=== PATIENT | female | born 1950 | race Caucasian/White ===

== ENCOUNTER → 2016-12-09 | Outpatient (CLI) | payer MEDICARE ==
--- NOTE | 2016-12-10 08:10 | MM ---
Reason for exam: additional evaluation requested from abnormal screening. Last mammogram was performed less than 1 month ago. History: Patient is postmenopausal. Cyst aspiration of the left breast, December 22, 2003. Took estrogen for 10 years. Took progesterone for 10 years. Physical Findings: Nurse did not find any significant physical abnormalities on exam. MG 3D Work Up W/Cad LT CC and MLO view(s) were taken of the left breast. Prior study comparison: November 29, 2016, bilateral MG 3d screening mammo w/cad. November 09, 2015, bilateral MG 3d diag mammo w/cad SUJATA. Minimally increased punctate calcifications upper outer quadrant left breast. 6 month follow up recommended. These results were verbally communicated with the patient and result sheet given to the patient on 12/09/16. ASSESSMENT: Probably benign, BI-RAD 3 RECOMMENDATION: Follow-up diagnostic mammogram of the left breast in 6 months. Manage patient on a clinical basis.
== END | disposition home or self-care (01) ==
LOC: RADMAMWWP 14:53
PROVIDERS: ATTEND Obstetrics & Gynecology
DX: R92.8 Other abnormal and inconclusive findings on diagnostic imaging of breast (principal)
CPT/HCPCS: 77051; G0206; G0279

== ENCOUNTER → 2017-03-28 | Outpatient (CLI) | payer MEDICARE ==
[2017-03-28 09:13] LABS: ALT 34 U/L (9-52); AST 25 U/L (14-36); Anion Gap 11 mmol/L; Blood Urea Nitrogen 15 mg/dL (7-17); Calcium 9.9 mg/dL (8.4-10.2); Carbon Dioxide 27 mmol/L (22-30); Chloride 105 mmol/L (98-107); Cholesterol 149 mg/dL (<200); Glucose 138 mg/dL (74-99); HDL Cholesterol 53 mg/dL (40-60); Non-African American GFR(MDRD) >60 (>60 ml/min/1.73 sqM); Potassium 4.6 mmol/L (3.5-5.1); Sodium 143 mmol/L (137-145); Triglycerides 188 mg/dL (<150)
[2017-03-28 09:16] LABS: CH 30.9; CHCM 34.7; HDW 3.09; HGB 12.7 gm/dL (11.4-16.0); MCH 31.5 pg (25.0-35.0); MCHC 35.3 g/dL (31.0-37.0); MCV 89.2 fL (80.0-100.0); RBC 4.04 m/uL (3.80-5.40); WBC 6.4 k/uL (3.8-10.6)
[2017-03-28 11:50] LABS: Hemoglobin A1C 6.1 % (4.2-6.1)
== END | disposition home or self-care (01) ==
LOC: LABWHC1 08:12
PROVIDERS: ATTEND Internal Medicine Interventional Cardiology
DX: E11.69 Type 2 diabetes mellitus with other specified complication (principal); E78.2 Mixed hyperlipidemia; E87.8 Other disorders of electrolyte and fluid balance, not elsewhere classified; R53.83 Other fatigue
CPT/HCPCS: 36415; 80048; 80061; 83036; 84450; 84460; 85027

== ENCOUNTER → 2017-05-20 | Outpatient (CLI) | payer MEDICARE ==
--- NOTE | 2017-05-20 10:37 | MM ---
Reason for exam: follow-up at short interval from prior study. Last mammogram was performed 5 months ago. History: Patient is postmenopausal. Cyst aspiration of the left breast, December 22, 2003. Took estrogen for 10 years. Took progesterone for 10 years. Physical Findings: Nurse did not find any significant physical abnormalities on exam. MG 3D Diag Mammo W/Cad LT CC and MLO view(s) were taken of the left breast. Prior study comparison: December 09, 2016, left breast MG 3d work up w/cad LT. November 29, 2016, bilateral MG 3d screening mammo w/cad. The breast tissue is heterogeneously dense. This may lower the sensitivity of mammography. No significant new findings when compared with previous films. These results were verbally communicated with the patient and result sheet given to the patient on 05/20/17. ASSESSMENT: Negative, BI-RAD 1 RECOMMENDATION: Return to routine screening mammogram schedule for both breasts. Back on schedule.
== END | disposition home or self-care (01) ==
LOC: RADMAMWWP 09:49
PROVIDERS: ATTEND Obstetrics & Gynecology
DX: R92.8 Other abnormal and inconclusive findings on diagnostic imaging of breast (principal)
CPT/HCPCS: G0206; G0279

== ENCOUNTER → 2017-05-30 | Outpatient (CLI) | payer MEDICARE ==
[2017-05-30 13:06] LABS: Blood Urea Nitrogen 12 mg/dL (7-17); Non-African American GFR(MDRD) >60 (>60 ml/min/1.73 sqM)
--- NOTE | 2017-05-30 14:54 | CT ---
EXAMINATION TYPE: CT abdomen pelvis w con DATE OF EXAM: 05/30/2017 COMPARISON: 11/13/2015 INDICATION: Patient complains of bilateral upper quadrant pain and diarrhea x3 weeks. DLP: 1041.8 mGycm, Automated exposure control for dose reduction was used. CONTRAST: 100 mL of Omnipaque 300. Study performed with Oral Contrast TECHNIQUE: Axial images were obtained from above the diaphragm to the pubic rami in the axial plane a t 5 mm thick sections. Reconstructed images are reviewed on the computer in the coronal plane. FINDINGS: Limited CT sections are obtained the lung bases. The lung bases are clear. CT ABDOMEN: Liver: There is moderate fatty infiltration liver. No discrete masses or cysts are evident. Spleen: Normal Pancreas: Normal Adrenal glands: The adrenal glands are normal. Gallbladder: Surgically absent Kidneys: No masses are evident. No hydronephrosis is present. No cysts are present. Delayed images were obtained through the kidneys, which remain unremarkable. Aorta: Vascular calcification is within the aorta. Inferior vena cava: Normal. CT PELVIS: Loops of bowel within the abdomen and pelvis are normal. Diverticular changes are within the sigm oid colon. No acute diverticulitis is evident. Appendix: Not visualized Urinary bladder: Normal. Genitourinary structures: Uterus is not identified. Adnexal regions are clear. Osseous structures: No suspicious lytic or sclerotic lesions. IMPRESSIONS: 1. Diverticulosis without acute diverticulitis. 2. Moderate fatty infiltration of the liver. 3. No suspicious abnormality to account for upper quadrant pain for 3 weeks
== END | disposition home or self-care (01) ==
LOC: RADCTMAIN 12:24
PROVIDERS: ATTEND Surgery
DX: K57.90 Diverticulosis of intestine, part unspecified, without perforation or abscess without bleeding (principal); K76.0 Fatty (change of) liver, not elsewhere classified
CPT/HCPCS: 82565; 84520; 74177; 36415; Q9967

== ENCOUNTER → 2018-01-28 | Outpatient (CLI) | payer MEDICARE ==
--- NOTE | 2018-01-29 08:59 | MM ---
Reason for exam: screening (asymptomatic). Last mammogram was performed 8 months ago. History: Patient is postmenopausal. Cyst aspiration of the left breast, December 22, 2003. Took estrogen for 10 years. Took progesterone for 10 years. Physical Findings: A clinical breast exam by your physician is recommended on an annual basis and results should be correlated with mammographic findings. MG 3D Screening Mammo W/Cad Bilateral CC and MLO view(s) were taken. Prior study comparison: May 20, 2017, left breast MG 3d diag mammo w/cad LT. December 09, 2016, left breast MG 3d work up w/cad LT. The breast tissue is extremely dense which could obscure a lesion on mammography. Stable benign calcifications. There is no discrete abnormality. No significant changes when compared with prior studies. ASSESSMENT: Benign, BI-RAD 2 RECOMMENDATION: Routine screening mammogram of both breasts in 1 year.
== END | disposition home or self-care (01) ==
LOC: RADMAMWWP 08:11
PROVIDERS: ATTEND Obstetrics & Gynecology
DX: Z12.31 Encounter for screening mammogram for malignant neoplasm of breast (principal)
CPT/HCPCS: 77063; 77067

== ENCOUNTER → 2018-03-10 | Outpatient (CLI) | payer MEDICARE ==
[2018-03-10 11:03] LABS: ALT 41 U/L (9-52); AST 29 U/L (14-36); Cholesterol 138 mg/dL (<200); HDL Cholesterol 49 mg/dL (40-60); LDL Cholesterol,Calculated 59 mg/dL (0-99); Triglycerides 150 mg/dL (<150)
== END | disposition home or self-care (01) ==
LOC: LABWHC1 09:18
PROVIDERS: ATTEND Internal Medicine Interventional Cardiology
DX: E78.2 Mixed hyperlipidemia (principal)
CPT/HCPCS: 36415; 80061; 84450; 84460

== ENCOUNTER → 2018-03-28 | Outpatient (CLI) | payer MEDICARE ==
[2018-03-28 09:01] LABS: Basophils % (A) 1 %; Eosinophils # (A) 0.2 k/uL (0-0.7); Eosinophils % (A) 2 %; HGB 12.6 gm/dL (11.4-16.0); Lymphocytes # (A) 1.8 k/uL (1.0-4.8); Lymphocytes % (A) 28 %; MCH 28.7 pg (25.0-35.0); MCHC 33.1 g/dL (31.0-37.0); MCV 86.7 fL (80.0-100.0); Mean Platelet Volume 7.3; Monocytes # (A) 0.3 k/uL (0-1.0); Monocytes % (A) 4 %; Neutrophils # (A) 4.2 k/uL (1.3-7.7); Neutrophils % (A) 64 %; Platelet Count 290 k/uL (150-450); RBC 4.38 m/uL (3.80-5.40); RDW 14.2 % (11.5-15.5); WBC 6.6 k/uL (3.8-10.6)
[2018-03-28 09:31] LABS: Anion Gap 15 mmol/L; Blood Urea Nitrogen 15 mg/dL (7-17); Calcium 9.7 mg/dL (8.4-10.2); Carbon Dioxide 23 mmol/L (22-30); Chloride 104 mmol/L (98-107); Glucose 148 mg/dL (74-99); Potassium 4.5 mmol/L (3.5-5.1); Sodium 142 mmol/L (137-145)
[2018-03-28 18:32] LABS: Hemoglobin A1C 6.3 % (4.0-6.0)
== END | disposition home or self-care (01) ==
LOC: LABWHC1 08:27
PROVIDERS: ATTEND Internal Medicine
DX: R53.83 Other fatigue (principal); E87.8 Other disorders of electrolyte and fluid balance, not elsewhere classified; E11.9 Type 2 diabetes mellitus without complications
CPT/HCPCS: 36415; 80048; 83036; 85025

== ENCOUNTER → 2018-05-05 | Outpatient (CLI) | payer MEDICARE ==
--- NOTE | 2018-05-05 15:49 | US ---
EXAMINATION TYPE: US pelvis complete transvag DATE OF EXAM: 05/05/2018 COMPARISON: NONE CLINICAL HISTORY: R10.2 PELVIC PAIN. Pelvic pain, LLQ pain for 2-3 weeks. 3 prior c-sections. Partial hysterectomy - uterus and right ovary TECHNIQUE: Transvaginal (TV) and Transabdominal (TA) . Transabdominal sonographic images of the pel vis were acquired. Transvaginal sonographic images were medically necessary to better assess the fol lowing anatomy: left ovary Date of LMP: unknown EXAM MEASUREMENTS: Uterus: Surgically absent cm Endometrial Stripe: Surgically absent Right Ovary: Surgically absent Left Ovary: unable to visualize 1. Uterus: Surgically absent 2. Endometrium: Surgically absent 3. Right Ovary: Surgically absent 4. Left Ovary: Obscured by overlying bowel gas 5. Bilateral Adnexa: wnl IMPRESSION: No significant abnormality evident within the limitations of the exam
== END | disposition home or self-care (01) ==
LOC: RADUSWWP 14:48
PROVIDERS: ATTEND Obstetrics & Gynecology
DX: R10.2 Pelvic and perineal pain (principal)
CPT/HCPCS: 76830; 76856

== ENCOUNTER → 2018-09-15 | Outpatient (CLI) | payer MEDICARE ==
[2018-09-15 10:46] LABS: ALT 29 U/L (9-52); AST 20 U/L (14-36); Alkaline Phosphatase 71 U/L (38-126); Anion Gap 11 mmol/L; Blood Urea Nitrogen 11 mg/dL (7-17); Calcium 9.5 mg/dL (8.4-10.2); Carbon Dioxide 26 mmol/L (22-30); Chloride 105 mmol/L (98-107); Cholesterol 165 mg/dL (<200); HDL Cholesterol 49 mg/dL (40-60); LDL Cholesterol,Calculated 75 mg/dL (0-99); Potassium 5.1 mmol/L (3.5-5.1); Sodium 142 mmol/L (137-145); Total Bilirubin 0.5 mg/dL (0.2-1.3); Total Protein 6.6 g/dL (6.3-8.2); Triglycerides 204 mg/dL (<150)
[2018-09-15 11:07] LABS: Glucose 146 mg/dL (74-99)
== END ==
LOC: LABWHC1 09:17
PROVIDERS: ATTEND Internal Medicine Interventional Cardiology
DX: E78.2 Mixed hyperlipidemia (principal)
CPT/HCPCS: 36415; 80053; 80061

== ENCOUNTER → 2019-01-22 | Outpatient (CLI) | payer MEDICARE ==
[2019-01-22 17:57] LABS: Albumin 4.6 g/dL (3.80-4.90); Albumin/Globulin Ratio 2.42 (1.60-3.17); Anion Gap 11.5 mmol/L (4.00-12.00); Carbon Dioxide 26.5 mmol/L (21.6-31.8); Globulin 1.9 g/dL (1.6-3.3); LDL Cholesterol,Calculated 59.6 mg/dL (0.0-131.0); Potassium 4.9 mmol/L (3.5-5.5); Total Bilirubin 0.5 mg/dL (0.2-1.2); Total Protein 6.5 g/dL (6.2-8.2); VLDL Calculation 43.4 mg/dL (5.00-40.00)
== END | disposition home or self-care (01) ==
LOC: LABWHC1 09:17
PROVIDERS: ATTEND Internal Medicine Interventional Cardiology
DX: E78.2 Mixed hyperlipidemia (principal)
CPT/HCPCS: 36415; 80053; 80061

== ENCOUNTER → 2019-04-09 | Outpatient (CLI) | payer MEDICARE ==
--- NOTE | 2019-04-09 13:17 | BD ---
EXAMINATION TYPE: Axial Bone Density DATE OF EXAM: 04/09/2019 COMPARISON: NONE CLINICAL HISTORY: Height: 4 FT11 1/2 IN Weight: 176 FRAX RISK QUESTIONS: Family History (Parent hip fracture): YES Secondary Osteoporosis: 3. Menopause before 45: YES RISK FACTORS HISTORY OF: Family History of Osteoporosis: YES Active: YES Postmenopausal woman: AGE 40 Lost more than 2 inches in height since high school: YES MEDICATIONS: Osteoporosis Medications: YES Which medication: ACTONEL How Long: ONE YEAR Additional Medications: ACTONEL, METFORMIN,JENUVIA, BABY ASPIRIN,ATTENOLOL, SIMVASTATIN Additional History: EXAM MEASUREMENTS: Bone mineral densitometry was performed using the KSE System. Bone mineral density as measured about the Lumbar spine is: ----- L1-L4(G/cm2): 1.215 T Score Values are as follows: ----- L2: -0.7 ----- L3: 2.0 ----- L4: 1.1 ----- L1-L4: 0.3 Bone mineral density has: INCREASED 7.1 % since study of: 2015 Bone mineral density about the R hip (g/cm2): 0.679 Bone mineral density about the L hip (g/cm2): 0.716 T Score values are as follows: -----R Neck: -2.6 -----L Neck: -2.3 -----R Total: -1.5 -----L Total: -1.3 Bone mineral density has: DECREASED -1.1 % since study of:2016 IMPRESSION: Osteopenia bilateral femora. NOTE: T-SCORE=SD OF THE YOUNG ADULT MEAN.
--- NOTE | 2019-04-13 07:43 | MM ---
Reason for exam: screening (asymptomatic). Last mammogram was performed 1 year and 2 months ago. History: Patient is postmenopausal. Cyst aspiration of the left breast, December 22, 2003. Took estrogen for 10 years. Took progesterone for 10 years. Physical Findings: A clinical breast exam by your physician is recommended on an annual basis and results should be correlated with mammographic findings. MG 3D Screening Mammo W/Cad Bilateral CC and MLO view(s) were taken. Prior study comparison: January 28, 2018, bilateral MG 3d screening mammo w/cad. May 20, 2017, left breast MG 3d diag mammo w/cad LT. The breast tissue is heterogeneously dense. This may lower the sensitivity of mammography. Stable benign oil cyst and secretory calcifications. Stable bilateral global asymmetries and medial asymmetric density right CC view. ASSESSMENT: Benign, BI-RAD 2 RECOMMENDATION: Routine screening mammogram of both breasts in 1 year.
== END | disposition home or self-care (01) ==
LOC: RADMAMWWP 11:57
PROVIDERS: ATTEND Obstetrics & Gynecology
DX: Z12.31 Encounter for screening mammogram for malignant neoplasm of breast (principal); M85.88 Other specified disorders of bone density and structure, other site; K52.9 Noninfective gastroenteritis and colitis, unspecified
CPT/HCPCS: 77063; 77067; 77080

== ENCOUNTER → 2019-04-09 | Outpatient (CLI) | payer MEDICARE ==
[2019-04-09 20:39] LABS: Gliadin AB IgA, Unit <0.2 U/mL
== END ==
LOC: LABWHC1 13:11
PROVIDERS: ATTEND Internal Medicine Gastroenterology
DX: K52.9 Noninfective gastroenteritis and colitis, unspecified (principal)
CPT/HCPCS: 36415; 83516; 85652; 86140

== ENCOUNTER → 2019-08-12 | Outpatient (CLI) | payer MEDICARE ==
[2019-08-12 16:39] LABS: Chol/HDL Ratio 3.3; LDL Cholesterol,Calculated 68.4 mg/dL (0.0-131.0); VLDL Calculation 39.6 mg/dL (5.00-40.00)
== END | disposition home or self-care (01) ==
LOC: LABWHC1 09:21
PROVIDERS: ATTEND Nurse Practitioner Adult Health
DX: E78.2 Mixed hyperlipidemia (principal)
CPT/HCPCS: 36415; 80061; 84450; 84460

== ENCOUNTER → 2019-08-27 | Outpatient (CLI) | payer MEDICARE ==
--- NOTE | 2019-08-27 12:00 | XR ---
EXAMINATION TYPE: XR Hip Complete RT DATE OF EXAM: 08/27/2019 COMPARISON: None HISTORY: Right hip pain TECHNIQUE: 2 view right hip FINDINGS: Femoral head articulates with the acetabulum. Joint space appears preserved. No acute fract ure or dislocation is evident. IMPRESSION: 1. Normal 2 view right hip
== END ==
LOC: RADXRMAIN 10:31
PROVIDERS: ATTEND Family Medicine
DX: M25.551 Pain in right hip (principal)
CPT/HCPCS: 73502

== ENCOUNTER 2019-09-03 06:17 | Day surgery (SDC) | payer MEDICARE ==
[2019-09-01 09:19] VITALS: BMI 33.2
[~2019-09-03 06:17] MED LIST: ALPRAZolam 0.25 MG TAB PO PRN; ALPRAZolam 0.5 MG TAB PO PRN; NITROGLYCERIN SL TABS 0.4 MG TAB SUBLINGUAL PRN; SODIUM CHLORIDE 0.9% 1,000 ML in EMPTY BAG 1 BAG IV ONE
[2019-09-03] MEDS ORDERED: ASPIRIN 81 MG ONE (06:59)
[2019-09-03] MEDS ORDERED: ASPIRIN 325 MG TAB PO ONE (07:00)
[2019-09-03] MEDS ORDERED: ATORVASTATIN 80 MG TAB PO ONE (07:00)
[2019-09-03 07:04] LABS: Glucose,Whole Blood 196 mg/dL (75-99)
[2019-09-03 07:12] LABS: Basophils % (A) 1 %; Eosinophils # (A) 0.1 k/uL (0-0.7); Eosinophils % (A) 2 %; HCT 34.4 % (34.0-46.0); HGB 11.8 gm/dL (11.4-16.0); Lymphocytes # (A) 1.6 k/uL (1.0-4.8); Lymphocytes % (A) 23 %; MCH 29.6 pg (25.0-35.0); MCHC 34.4 g/dL (31.0-37.0); MCV 86.1 fL (80.0-100.0); Mean Platelet Volume 6.1; Monocytes # (A) 0.3 k/uL (0-1.0); Monocytes % (A) 4 %; Neutrophils # (A) 4.9 k/uL (1.3-7.7); Neutrophils % (A) 70 %; Platelet Count 286 k/uL (150-450); RDW 14.5 % (11.5-15.5); WBC 7.1 k/uL (3.8-10.6)
[2019-09-03] MEDS ORDERED: VERAPAMIL 2.5 MG/ML 2 ML AMP ONE (07:19)
[2019-09-03] MEDS ORDERED: LIDOCAINE 1% INJ 10MG/ML (20 ML MDV) ONE (07:20)
[2019-09-03 07:30] LABS: African American GFR (CKD) >90 (>60 ml/min/1.73 sqM); Anion Gap 11 mmol/L; Blood Urea Nitrogen 14 mg/dL (7-17); Calcium 9.7 mg/dL (8.4-10.2); Carbon Dioxide 24 mmol/L (22-30); Chloride 105 mmol/L (98-107); Glucose 199 mg/dL (74-99); Non-African American GFR(CKD) 84 (>60 ml/min/1.73 sqM); Potassium 4.4 mmol/L (3.5-5.1); Sodium 140 mmol/L (137-145)
[2019-09-03] MEDS ORDERED: fentaNYL (PF) 50 MCG/ML 2 ML AMP ONE (07:32)
[2019-09-03] MEDS ORDERED: HEPARIN SODIUM 1,000 UN/ML (10ML VL) ONE (07:32)
[2019-09-03] MEDS ORDERED: IV FLUID CONTINUATION 800 ML IV ONE (07:41)
[2019-09-03] MEDS ORDERED: fentaNYL (PF) 50 MCG/ML 2 ML AMP IV ONE (07:41)
[2019-09-03] MEDS ORDERED: LIDOCAINE 1% INJ 10MG/ML (20 ML MDV) SQ ONE (07:49)
[2019-09-03] MEDS ORDERED: VERAPAMIL SYRINGE (5 MG/10 ML) INTRAARTER ONE (07:51)
[2019-09-03] MEDS ORDERED: CLOPIDOGREL 75 MG TAB ONE (08:04)
[2019-09-03] MEDS ORDERED: BIVALIRUDIN BOLUS 250 MG/50 ML IV ONE (08:05)
[2019-09-03] MEDS ORDERED: BIVALIRUDIN 250 MG in SODIUM CHLORIDE 0.9% 50 ML IV ONE (08:06)
[2019-09-03] MEDS ORDERED: CLOPIDOGREL 75 MG TAB PO ONE (08:07)
[2019-09-03] MEDS ORDERED: NITROGLYCERIN 1000MCG/10ML SYRINGE INTRACORON ONE (08:16)
[2019-09-03] MEDS ORDERED: IOPAMIDOL-370 125ML BTL INJ ONE ×2 (08:19→08:31)
[2019-09-03] MEDS ORDERED: ATROPINE SULFATE 0.1 MG/ML 10ML SYRINGE IV PRN (08:54)
[2019-09-03] MEDS ORDERED: MAG HYDROX/AL HYDROX/SIMETH 30 ML CUP PO PRN (08:54)
[2019-09-03] MEDS ORDERED: NITROGLYCERIN SL TABS 0.4 MG TAB SUBLINGUAL PRN (08:54)
[2019-09-03] MEDS ORDERED: ZOLPIDEM 5 MG TAB PO PRN (08:54)
[2019-09-03] MEDS ORDERED: RX INFO: IV CONTRAST WAS GIVEN 1 EACH MISC MISCELLANE PRN (08:54)
[2019-09-03] MEDS ORDERED: DICYCLOMINE 10 MG CAP PO PRN (08:55)
[2019-09-03] MEDS ORDERED: ALPRAZolam 0.25 MG TAB PO PRN (08:55)
[2019-09-03] MEDS ORDERED: SODIUM CHLORIDE 0.9% 1,000 ML IV SCH (09:00)
[2019-09-03] MEDS ORDERED: CHOLECALCIFEROL 1,000 UNIT TAB PO SCH (09:00)
[2019-09-03] MEDS ORDERED: ATENOLOL 50 MG TAB PO SCH (09:00)
--- NOTE | 2019-09-03 09:05 | CC ---
CARDIAC CATHETERIZATION REPORT Mrs. Rausch is a 69-year-old female with known history of coronary artery disease, status post stenting of 1996, history of hypertension, hyperlipidemia, diabetes mellitus, who presented with symptoms of exertional chest discomfort reminding her of the way she felt prior to her percutaneous revascularization. In view of that, recommendation was made regarding cardiac catheterization. The procedure as well as the risks and the complications were discussed with the patient who is in full understanding and agreement. 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 Using Xylocaine anesthesia in the Seldinger technique, a 6-Bangladeshi sheath was introduced in the right radial artery. Selective right and left coronary angiography performed using 5-Bangladeshi 3.5 bend right and left Jareth catheters. Multiple views of the coronary artery including hemiaxial views were obtained. Following that, angioplasty and stenting was performed. Following that 5-Bangladeshi tight pigtail catheter was introduced in the left ventricle and a 30-degree TALBOT view of the left ventricle was obtained. Following that, catheter and sheath were removed. Hemostasis was obtained with deployment of TR band. There was no immediate complication. Patient is returned to her room in stable condition. Of note, the patient received intra-arterial verapamil. FINDINGS: FLUOROSCOPY: There was significant calcification involving the left anterior descending artery and the right coronary artery. LEFT MAIN: This is a large-sized vessel bifurcating in left circumflex, left anterior descending artery. Left main coronary artery has no evidence of high-grade stenosis. LEFT ANTERIOR DESCENDING ARTERY: This is a large-sized vessel reaching to the apex giving rise to a moderately sized diagonal branch in the mid segment. The left anterior descending artery at the site of the diagonal branch takeoff has a 40% plaque involving the diagonal branch in a calcified segment. The rest of the vessel has no high-grade stenosis. LEFT CIRCUMFLEX: This is a nondominant vessel, large in caliber giving rise to 3 obtuse marginal branches. The third one is the largest in caliber. The left circumflex approximately has a 20% plaque. The rest of the vessel has no high-grade stenosis. RIGHT CORONARY ARTERY: This is a dominant vessel large in caliber bifurcating distally PDA and posterolateral segment and branches. The mid segment of the right coronary artery at the site of the prior stenting of 1996 in the middle of the stent, there is a 90% stenosis. Distally, the vessel has intimal disease with area of stenosis up to 40%. There is another plaque of 50% to 60% involving the PDA. LEFT VENTRICULOGRAM: Left ventriculogram is performed 30-degree TALBOT view and revealed an inferobasal hypokinesis. Ejection fraction 45% to 50%. There was no significant mitral regurgitation. HEMODYNAMICS: There was no gradient across the aortic valve. The left ventricular end-diastolic pressure donahue 16 to 20 mmHg. CONCLUSION: 1. Significant stenosis in the mid right coronary artery. 2. Mild disease in the left anterior descending artery and the left circumflex. 3. Calcified coronary arteries. 4. Mildly impaired left ventricular systolic function. RECOMMENDATION: In view of finding anatomy, I recommend proceeding with angioplasty and stenting of the right coronary artery. The procedure as well as the risks and the complications were discussed with the patient who is in full understanding and agreement. MMQAMARL / IJN: [id number] /
--- NOTE | 2019-09-03 09:19 | PTCA ---
PERCUTANEOUSTRANS CORORONARY ANGIOGRAPHY Mrs. Rausch is a 69-year-old female with known history of hypertension, hyperlipidemia, diabetes mellitus, and history of coronary artery disease who presented with new onset angina pectoris, underwent cardiac catheterization, was found to have critical stenosis involving the mid right coronary artery. In view of that, recommendation was made regarding angioplasty and stenting. The procedure as well as the risks and the complications were discussed with the patient who was in full understanding and agreement. PROCEDURE: A 6-[place] FR4 guiding catheter introduced in the system. After cannulating the ostium of the right coronary artery, a 0.014 balanced medium weight J-wire was advanced across the lesion, positioned distally. Subsequently a 2.75 x 12 mm Trek balloon was advanced and 2 inflations maximum of 10 atmospheres were done. Following that, the balloon was removed and a 3.5 x 23 mm Xience Veronique stent was advanced, deployed and post dilated at 16 atmospheres. Following that, the balloon was removed and subsequently, a 3.75 x 15 mm NC Trek balloon was advanced and multiple inflations maximum of 16 atmospheres was done after the last inflation, after appropriate wait the balloon and the guidewire were withdrawn back in the guiding catheter. Images were obtained repeated those images reveal stable successful stenting. At that point, the guiding catheter, the balloon and the guidewire were removed and a left ventriculogram was performed. Following that, catheter and sheaths were removed. Hemostasis was obtained with deployment of a TR band. There was no immediate complication patient is returned to room in stable condition. Of note, the patient received Angiomax per protocol and oral loading dose of clopidogrel. Chest discomfort and EKG changes with the inflation that resolved at the end procedure. RESULTS: Successful stenting of the mid right coronary artery with reduction of stenosis from 90% to less than 5%. RECOMMENDATION: Patient will be continued on aspirin, Plavix, beta blockers, LIEN inhibitors and statin. The importance of dual antiplatelet treatment was discussed with the patient and her family who are in full understanding and agreement. Duration of procedure is 43 minutes. MMODL / IJN: [id number] / MTDMona
--- NOTE | 2019-09-03 09:23 | LTR ---
September 03, 2019 Re: Lashon Rausch Dear Dr. Erwin: I had the opportunity to perform cardiac catheterization and coronary angioplasty and stenting on Mrs. Rausch at [facility] on the 03 of September and a full copy of the procedure note will be forwarded to you. In brief, she was found to have significant obstructive disease involving the mid right coronary artery and underwent successful stenting of that vessel using a drug-eluting stent. I am hopeful that this procedure will stabilize her status. Thank you again for allowing me the opportunity to participate in her care. Please feel free to call for any questions. Sincerely yours, MD LORENZO ContrerasL / TEREN: [id number] /
[2019-09-03 13:11] LABS: Glucose,Whole Blood 215 mg/dL (75-99)
[2019-09-03] MEDS: INSULIN ASPART (NovoLOG) 100 UNIT/ML VIAL SQ SCH ×3 (13:19→20:52)
[2019-09-03 17:04] LABS: Glucose,Whole Blood 161 mg/dL (75-99)
[2019-09-03 20:26] LABS: Glucose,Whole Blood 204 mg/dL (75-99)
[2019-09-03] MEDS ORDERED: amLODIPine 5 MG TAB PO STA (23:36)
[2019-09-04] MEDS: INSULIN ASPART (NovoLOG) 100 UNIT/ML VIAL SQ SCH ×2 (06:14→12:36)
[2019-09-04 06:41] LABS: Glucose,Whole Blood 192 mg/dL (75-99)
[2019-09-04 07:14] LABS: African American GFR (CKD) >90 (>60 ml/min/1.73 sqM); Anion Gap 8 mmol/L; Blood Urea Nitrogen 13 mg/dL (7-17); Calcium 9.8 mg/dL (8.4-10.2); Carbon Dioxide 26 mmol/L (22-30); Chloride 107 mmol/L (98-107); Glucose 189 mg/dL (74-99); Non-African American GFR(CKD) 89 (>60 ml/min/1.73 sqM); Potassium 4.4 mmol/L (3.5-5.1); Sodium 141 mmol/L (137-145)
[2019-09-04] MEDS ORDERED: PANTOPRAZOLE 40 MG TABLET PO SCH (07:30)
[2019-09-04] MEDS ORDERED: GLIMEPIRIDE 0.5 MG TAB PO SCH ×2 (07:30→17:30)
[2019-09-04] MEDS ORDERED: ATORVASTATIN 40 MG TAB PO SCH ×2 (09:00→21:00)
[2019-09-04] MEDS ORDERED: CHOLECALCIFEROL 1,000 UNIT TAB PO SCH (09:00)
[2019-09-04] MEDS ORDERED: LINAGLIPTIN 5 MG TABLET PO SCH (09:00)
[2019-09-04] MEDS ORDERED: CLOPIDOGREL 75 MG TAB PO SCH (09:00)
[2019-09-04] MEDS ORDERED: ATENOLOL 50 MG TAB PO SCH (09:00)
[2019-09-04] MEDS ORDERED: LOSARTAN 50 MG TAB PO SCH ×2 (09:00)
[2019-09-04] MEDS ORDERED: ISOSORBIDE MONONITRATE ER 30 MG TAB.ER.24H PO SCH (09:00)
[2019-09-04] MEDS ORDERED: ASPIRIN 81 MG PO SCH (09:00)
--- NOTE | 2019-09-04 10:09 | PN ---
PROGRESS NOTE Mrs. Rausch is a 69-year-old female with known history of coronary artery disease who presented with new onset angina pectoris, underwent cardiac catheterization, was found to have critical stenosis involving the mid right coronary artery, underwent stenting of that vessel. She is doing quite well this morning, ambulating without difficulty. Denying any chest pain. No dizziness. No palpitation. She continues to be on aspirin once a day, Plavix 75 mg daily, atenolol 50 mg daily, Lipitor 40 mg daily, glimepiride 0.5 mg daily, isosorbide mononitrate 30 mg daily, Cozaar 100 mg daily, Tradjenta. PHYSICAL EXAMINATION: Blood pressure 145/70 with the heart rate in 70s. LUNGS: Clear. HEART: Regular rate and rhythm. S1, S2. No S3 with systolic murmur heard at the base, ejection type. No diastolic murmur. No rub. ABDOMEN: Soft, nontender. Positive bowel sounds. No organomegaly. EXTREMITIES: No edema. Right radial pulse intact. LAB DATA: EKG revealed no acute changes with findings of myocardial infarction, old. BUN and creatinine 13 and 0.7. Potassium 4.4. IMPRESSION: 1. Coronary artery disease, status post stenting of the right coronary artery. 2. Hypertension. 3. Hyperlipidemia. 4. Diabetes mellitus. RECOMMENDATION: Patient will be discharged home today and followed as an outpatient. MMODL / TEREN: [id number] /
[2019-09-04 10:54] VITALS: RESP 18; TEMP 98.2
[2019-09-04 12:02] LABS: Glucose,Whole Blood 206 mg/dL (75-99)
[2019-09-04 16:58] VITALS: BP 131/70; PULSE 52
== END 2019-09-04 13:27 | disposition home or self-care (01) ==
LOC: CATHCVL 06:17 → 3SCARD 12:53 → CATHCVL 09-04 13:27
PROVIDERS: ATTEND Internal Medicine Interventional Cardiology
DX: I25.110 Atherosclerotic heart disease of native coronary artery with unstable angina pectoris (principal); I25.84 Coronary atherosclerosis due to calcified coronary lesion; I10 Essential (primary) hypertension; E78.00 Pure hypercholesterolemia, unspecified; Z95.5 Presence of coronary angioplasty implant and graft; E78.2 Mixed hyperlipidemia; E11.9 Type 2 diabetes mellitus without complications; Z79.82 Long term (current) use of aspirin; Z79.899 Other long term (current) drug therapy; Z79.84 Long term (current) use of oral hypoglycemic drugs; Z88.0 Allergy status to penicillin; Z88.8 Allergy status to other drugs, medicaments and biological substances
CPT/HCPCS: 93458; 80048 ×2; 85025; C9600; C1769; C1887; C1725 ×2; C1874; J2001; J3010; J0583; Q9967

== ENCOUNTER → 2019-10-26 | Outpatient (CLI) | payer MEDICARE ==
[2019-10-26 14:47] LABS: Amorphous Sediment,Urine Rare /hpf; Appearance,Urine Cloudy (Clear); Bilirubin,Urine Negative (Negative); Blood,Urine Negative (Negative); Color,Urine Yellow; Glucose,Urine (UA) Negative (Negative); Ketones,Urine Negative (Negative); Leukocyte Esterase,Urine Negative (Negative); Mucus,Urine Rare /hpf; Nitrite,Urine Negative (Negative); PH, Urine 5.5 (5.0-8.0); Protein,Urine Negative (Negative); RBC,Urine <1 /hpf (0-5); Specific Gravity,Urine 1.019 (1.001-1.035); Squamous Epithelial Cell,Urine <1 /hpf (0-4); Uric Acid Crystals,Urine Few /hpf; Urobilinogen,Urine <2.0 mg/dL (<2.0); WBC,Urine 1 /hpf (0-5)
[2019-10-26 15:04] LABS: Albumin 4.6 g/dL (3.5-5.0); Calcium 10.3 mg/dL (8.4-10.2); Magnesium 1.3 mg/dL (1.6-2.3); Potassium 5.1 mmol/L (3.5-5.1); Total Bilirubin 0.6 mg/dL (0.2-1.3); Total Protein 7.4 g/dL (6.3-8.2)
--- NOTE | 2019-10-26 15:10 | CT ---
EXAMINATION TYPE: CT abdomen pelvis w con DATE OF EXAM: 10/26/2019 COMPARISON: 05/30/2017 HISTORY: 69-year-old female Epigastric pain TECHNIQUE: Contiguous axial scanning of the abdomen and pelvis following administration of 100 ml Iso vesta 300 IV contrast. Delayed images through the kidneys and coronal/sagittal reconstructions perform ed. CT DLP: 1408 mGycm Automated exposure control for dose reduction was used. FINDINGS: Heart upper limits of normal in size without pericardial effusion. Coronary artery calcifications are present. Lung bases clear without pleural effusion. Liver mildly enlarged measuring 18.0 cm with low attenuation. No biliary ductal dilatation. Portal ve nous system is patent. Cholecystectomy clips. Adrenal glands, spleen, and pancreas appear within normal limits. Scattered subcentimeter hypodensities within both kidneys too small for accurate CT characterization, likely cysts, stable from 2017. The largest in the left upper pole measures 1.1 cm. No dilated small bowel, free fluid, or free air. No mesenteric or retroperitoneal lymphadenopathy. Normal appendix. Moderate stool burden. Mid sigmoid diverticulosis. No pericolonic inflammatory osuna e. Bladder partially distended with mild physical perivesicular fat stranding. Uterus surgically absent. Left ovary is visualized. Right ovary not clearly delineated. No abnormal fluid collection the pelvi s or pelvic lymphadenopathy. Bones: Mild degenerative changes at the hips. Osteopenia. Facet arthropathy lower lumbar spine. Degen erative disc disease lower thoracic spine. IMPRESSION: 1. MILD PERIVESICULAR FAT STRANDING. CORRELATE TO EXCLUDE CYSTITIS. 2. MILD HEPATOMEGALY (18.0 CM) WITH UNDERLYING HEPATIC STEATOSIS. 3. SIGMOID DIVERTICULOSIS WITHOUT ACUTE DIVERTICULITIS.
[2019-10-26 15:20] LABS: T4, Free (Free Thyroxine) 0.94 ng/dL (0.78-2.19)
[2019-10-26 21:12] LABS: Gliadin AB IgA, Deaminated NEGATIVE (NEGATIVE); Gliadin AB IgA, Unit <0.2 U/mL; Gliadin AB IgG, Deaminated NEGATIVE (NEGATIVE)
[2019-10-26 22:08] LABS: Immunoglobulin E 9.38 IU/mL (0.00-114.00)
[2019-10-26 22:32] LABS: Egg White IgE <0.10 kU/L
[2019-10-27 00:34] LABS: Scallop IgE <0.10 kU/L; Walnut IgE (Food) <0.10 kU/L
[2019-10-27 00:35] LABS: Clam IgE <0.10 kU/L; Peanut IgE <0.10 kU/L; Shrimp IgE <0.10 kU/L; Soybean IgE <0.10 kU/L
[2019-10-27 00:36] LABS: Codfish IgE <0.10 kU/L
[2019-10-27 11:23] LABS: % Iron Saturation 21.41 (12.00-45.00)
[2019-10-27 11:30] LABS: Ferritin 28.6 ng/mL (10.0-291.0)
== END | disposition home or self-care (01) ==
LOC: RADCTMAIN 12:48
PROVIDERS: ATTEND Family Medicine
DX: K76.0 Fatty (change of) liver, not elsewhere classified (principal); K57.30 Diverticulosis of large intestine without perforation or abscess without bleeding; R10.9 Unspecified abdominal pain; R19.7 Diarrhea, unspecified; R11.0 Nausea; L60.3 Nail dystrophy; R68.0 Hypothermia, not associated with low environmental temperature
CPT/HCPCS: 85379; 84439; 80053; 82728; 82150; 82565; 82550; 82977; 83540; 83550; 83615; 83690; 83735; 84443; 84520; 81001; 86003; 82785; 83516 ×4; 87086; 74177; 36415; Q9967

== ENCOUNTER → 2019-11-05 | Outpatient (CLI) | payer MEDICARE ==
[2019-11-05 10:13] LABS: Basophils # (A) 0.1 k/uL (0-0.2); Basophils % (A) 1 %; Eosinophils # (A) 0.1 k/uL (0-0.7); Eosinophils % (A) 1 %; HCT 35.6 % (34.0-46.0); HGB 11.7 gm/dL (11.4-16.0); Lymphocytes # (A) 1.6 k/uL (1.0-4.8); Lymphocytes % (A) 22 %; MCH 28.8 pg (25.0-35.0); MCHC 32.8 g/dL (31.0-37.0); MCV 87.7 fL (80.0-100.0); Mean Platelet Volume 6.6; Monocytes # (A) 0.4 k/uL (0-1.0); Monocytes % (A) 5 %; Neutrophils # (A) 5.1 k/uL (1.3-7.7); Neutrophils % (A) 70 %; Platelet Count 308 k/uL (150-450); RBC 4.06 m/uL (3.80-5.40); RDW 14.5 % (11.5-15.5); WBC 7.3 k/uL (3.8-10.6)
[2019-11-05 17:38] LABS: Cancer Antigen 19-9 9.2 U/mL (0.0-34.9)
[2019-11-05 17:44] LABS: African American GFR (CKD) 75.6 (60.0-200.0); Albumin 4.6 g/dL (3.80-4.90); Albumin/Globulin Ratio 2.42 (1.60-3.17); Anion Gap 10.4 mmol/L (4.00-12.00); BUN/Creat Ratio 15.56 Ratio (12.00-20.00); Calcium 9.8 mg/dL (8.7-10.3); Carbon Dioxide 23.6 mmol/L (21.6-31.8); Globulin 1.9 g/dL (1.6-3.3); Magnesium 1.2 mg/dL (1.5-2.4); Non-African American GFR(CKD) 65.2 (60.0-200.0); Potassium 5.2 mmol/L (3.5-5.5); Total Bilirubin 0.5 mg/dL (0.3-1.2); Total Protein 6.5 g/dL (6.2-8.2)
[2019-11-06 10:59] LABS: IgG Subclass 3 90.8 mg/dL (11.0-85.0); IgG Subclass 4 3.9 mg/dL (3.0-175.0)
== END | disposition home or self-care (01) ==
LOC: LABWHC1 09:09
PROVIDERS: ATTEND Nurse Practitioner
DX: R10.13 Epigastric pain (principal)
CPT/HCPCS: 36415; 80053; 82150; 82787; 83690; 83735; 85025; 86038; 86301

== ENCOUNTER → 2019-12-16 | Outpatient (CLI) | payer MEDICARE ==
--- NOTE | 2019-12-16 11:48 | US ---
EXAMINATION TYPE: US abdomen limited DATE OF EXAM: 12/16/2019 COMPARISON: CT 10/26/2019 CLINICAL HISTORY: R10.13 Epigastric pain. EXAM MEASUREMENTS: Liver Length: 15.0 cm Gallbladder Wall: Surgically absent cm CBD: 0.5 cm Right Kidney: 9.6 x 4.9 x 4.4 cm Pancreas: Obscured by bowel gas Liver: Echogenic, coarse echotexture. This finding limits evaluation for hepatic masses. Nonenlarged . Gallbladder: Surgically absent Evidence for sonographic Chau's sign: No CBD: wnl Right Kidney: No hydronephrosis. Hypoechoic area visualized upper pole measuring 0.7 x 0.8 x 0.7 cm, possible cyst. IMPRESSION: 1. Coarsened hepatic echotexture, most commonly relating to hepatic steatosis. Correlate with liver f unction tests. This was seen on the prior CT of 10/26/2019. 2. Probable subcentimeter right renal cyst. 3. Obscuration of the pancreas by overlying bowel.
== END | disposition home or self-care (01) ==
LOC: RADUSWWP 09:01
PROVIDERS: ATTEND Internal Medicine Gastroenterology
DX: R93.2 Abnormal findings on diagnostic imaging of liver and biliary tract (principal); R10.13 Epigastric pain
CPT/HCPCS: 76705

== ENCOUNTER → 2019-12-16 | Outpatient (CLI) | payer MEDICARE ==
[2019-12-16 17:04] LABS: African American GFR (CKD) 66.6 (60.0-200.0); Albumin 4.6 g/dL (3.80-4.90); Albumin/Globulin Ratio 2.88 (1.60-3.17); Anion Gap 9.8 mmol/L (4.00-12.00); Calcium 10.1 mg/dL (8.7-10.3); Carbon Dioxide 26.2 mmol/L (21.6-31.8); Chol/HDL Ratio 2.75; Globulin 1.6 g/dL (1.6-3.3); LDL Cholesterol,Calculated 43.6 mg/dL (0.0-131.0); Non-African American GFR(CKD) 57.4 (60.0-200.0); Total Bilirubin 0.5 mg/dL (0.2-1.2); Total Protein 6.2 g/dL (6.2-8.2); VLDL Calculation 33.4 mg/dL (5.00-40.00)
== END | disposition home or self-care (01) ==
LOC: LABWHC1 09:58
PROVIDERS: ATTEND Internal Medicine Interventional Cardiology
DX: E78.2 Mixed hyperlipidemia (principal)
CPT/HCPCS: 36415; 80053; 80061

== ENCOUNTER 2019-12-31 07:09 | Day surgery (SDC) | payer MEDICARE ==
[2019-12-30 09:11] VITALS: BMI 33.2
[~2019-12-31 07:09] MED LIST changes: -ALPRAZolam 0.25 MG TAB PO PRN; -ALPRAZolam 0.5 MG TAB PO PRN; +LACTATED RINGERS 1,000 ML IV SCH; -NITROGLYCERIN SL TABS 0.4 MG TAB SUBLINGUAL PRN; -SODIUM CHLORIDE 0.9% 1,000 ML in EMPTY BAG 1 BAG IV ONE
[2019-12-31 07:36] VITALS: TEMP 97.6
[2019-12-31] MEDS ORDERED: PROPOFOL 10 MG/ML 20 ML VIAL IV ONE (08:11)
[2019-12-31] MEDS ORDERED: LIDOCAINE 1% INJ 10MG/ML (20 ML MDV) ONE (08:11)
--- NOTE | 2019-12-31 08:21 | P.PCN ---
Date of Procedure: 12/31/19 Procedure(s) Performed: BRIEF HISTORY: Patient is a 69-year-old, pleasant, female, scheduled for an upper endoscopy as a part of evaluation of persistent epigastric pain for the last 3 months duration. She was given a trial of Prilosec with no help. She since can for an upper endoscopy to evaluate further. PROCEDURE PERFORMED: Esophagogastroduodenoscopy . PREOPERATIVE DIAGNOSIS: Chronic epigastric pain of 3 months duration. IV sedation per anesthesia. PROCEDURE: After informed consent was obtained, the patient was brought into the endoscopy unit. IV sedation was administered by Anesthesia under continuous monitoring. Initially the Olympus GIF-140 video endoscope was inserted into the mouth. Esophagus intubated without any difficulty. It was gradually advanced into the stomach and duodenum and carefully examined. The bulb had mild duodenitis and the second part of the duodenum appeared normal. The scope at this time was withdrawn to the stomach, adequately insufflated with air, and upon careful examination, mucosa of the antrum, had mild diffuse gastritis. The body, cardia and the fundus appeared normal. The scope was then withdrawn into the esophagus. The GE junction was located at 39 cm from the incisors. There were 2 superficial erosions at the GE junction consistent with LA grade B reflux esophagitis. The rest of esophagus appeared normal and the patient tolerated the procedure well. IMPRESSION: 1. Patchy areas of erythema in the antrum consistent with mild gastritis. 2. Mild duodenitis in the duodenal bulb 3. 2 superficial erosions at the GE junction consistent with LA grade B reflux esophagitis. RECOMMENDATIONS: The findings of this examination were discussed with the patient as well as a family. She'll be started on Pepcid 20 mg twice daily and was briefly treated about antireflux measures. She will follow up in office in 4-6 weeks
[2019-12-31 09:05] VITALS: BP 130/71; PULSE 50; RESP 18
== END 2019-12-31 09:13 | disposition home or self-care (01) ==
LOC: ORWHC2ENDO 07:09
PROVIDERS: ATTEND Internal Medicine Gastroenterology
DX: K29.80 Duodenitis without bleeding (principal); K29.70 Gastritis, unspecified, without bleeding; K22.10 Ulcer of esophagus without bleeding; K21.9 Gastro-esophageal reflux disease without esophagitis; E11.9 Type 2 diabetes mellitus without complications; I25.2 Old myocardial infarction; I25.10 Atherosclerotic heart disease of native coronary artery without angina pectoris; I10 Essential (primary) hypertension; E78.5 Hyperlipidemia, unspecified; F41.9 Anxiety disorder, unspecified; Z79.899 Other long term (current) drug therapy; Z79.84 Long term (current) use of oral hypoglycemic drugs; Z79.82 Long term (current) use of aspirin; Z79.02 Long term (current) use of antithrombotics/antiplatelets; Z88.1 Allergy status to other antibiotic agents; Z88.8 Allergy status to other drugs, medicaments and biological substances; Z95.5 Presence of coronary angioplasty implant and graft; Z86.69 Personal history of other diseases of the nervous system and sense organs
CPT/HCPCS: 43235; J2001; J2704

== ENCOUNTER 2020-04-17 18:09 | Emergency (ER) | payer MEDICARE ==
--- NOTE | 2020-04-17 18:47 | ED ---
Recheck HPI - General Chief Complaint: Recheck/Abnormal Lab/Rx Stated Complaint: Swelling & nasal drip, poss allergic reaction Time Seen by Provider: 04/17/20 18:21 Source: patient Mode of arrival: ambulatory Limitations: no limitations - History of Present Illness Initial Comments: 69-year-old female presenting today for chief complaint of feels like she swallowed all over. Patient states she feels like she has gained weight and is smaller. She saw her primary care provider for this complaint a few days prior had laboratory studies drawn. Patient denies any chest pain or shortness of breath denies any nighttime awakening with shortness of breath or difficulty lying flat. Patient states she is unsure if this is medication related. Patient states she started to diabetic medications as well as Lasix. Patient states she started these medications however after the initial complaint. Patient has a tongue or lip swelling. Denies any redness rash fevers abdominal pain nausea vomiting or diarrhea. Patient really has no other complaints she appears very well on arrival no signs of acute distress vital signs within acceptable limits. patietn states she has had dripping from her nose, no congestions, or cough. Denies wheezing. - Related Data Home Medications Medication Instructions Recorded Confirmed ALPRAZolam [Xanax] 0.25 mg PO DAILY PRN 09/01/19 04/17/20 Aspirin [Adult Low Dose Aspirin EC] 81 mg PO DAILY 09/01/19 04/17/20 Atenolol [Tenormin] 50 mg PO QAM 09/01/19 04/17/20 Isosorbide Mononitrate [Isosorbide 30 mg PO QAM 09/01/19 04/17/20 Mononitrate ER] sitaGLIPtin [Januvia] 100 mg PO QAM 09/01/19 04/17/20 Glimepiride [Amaryl] 1 mg PO [id number]-[id number] 12/30/19 04/17/20 Empagliflozin [Jardiance] 25 mg PO DAILY 04/17/20 04/17/20 Famotidine 20 mg PO BID 04/17/20 04/17/20 Furosemide [Lasix] 20 mg PO DAILY PRN 04/17/20 04/17/20 Pioglitazone [Actos] 15 mg PO DAILY 04/17/20 04/17/20 Previous Rx's Medication Instructions Recorded Atorvastatin [Lipitor] 40 mg PO HS #90 tab 09/04/19 Clopidogrel [Plavix] 75 mg PO DAILY #90 tab 09/04/19 Losartan [Cozaar] 100 mg PO QAM #90 tab 09/04/19 Allergies Allergy/AdvReac Type Severity Reaction Status Date / Time cephalexin [From Keflex] Allergy Itching Verified 04/17/20 19:08 ticlopidine [From Ticlid] Allergy Rash/Hives Verified 04/17/20 19:08 Review of Systems ROS Statement: Those systems with pertinent positive or pertinent negative responses have been documented in the HPI. ROS Other: All systems not noted in ROS Statement are negative. Past Medical History Past Medical History: Coronary Artery Disease (CAD), Diabetes Mellitus, Hyperlipidemia, Hypertension, Myocardial Infarction ([place]) Additional Past Medical History / Comment(s): abd pain, had seizure one time post had toxemia Last Myocardial Infarction Date:: 1997 History of Any Multi-Drug Resistant Organisms: None Reported Past Surgical History: Section, Cholecystectomy, Heart Catheterization With Stent, Joint Replacement, Orthopedic Surgery Additional Past Surgical History / Comment(s): bilat knees, STENT RCA 09/03/19 DR MOSQUERA Past Anesthesia/Blood Transfusion Reactions: No Reported Reaction Date of Last Stent Placement:: 09/03/19 Past Psychological History: Anxiety Smoking Status: Never smoker Past Alcohol Use History: None Reported Past Drug Use History: None Reported - Past Family History Mother Additional Family Medical History / Comment(s): , BROKEN HIP- BROKEN FOOT- GANGRENE Father Additional Family Medical History / Comment(s): General Exam - General Exam Comments Initial Comments: General: The patient is awake and alert, in no distress, and does not appear acutely ill. Eye: Pupils are equal, round and reactive to light, extra-ocular movements are intact. No nystagmus. There is normal conjunctiva bilaterally. No signs of icterus. Ears, nose, mouth and throat: There are moist mucous membranes and no oral lesions. No tongue or lip swelling. Some minor PND. No anterior rhinorrhea. Neck: The neck is supple, there is no tenderness or JVD. Cardiovascular: There is a regular rate and rhythm. No murmur, rub or gallop is appreciated. Respiratory: Lungs are clear to auscultation, respirations are non-labored, breath sounds are equal. No wheezes, stridor, rales, or rhonchi. Gastrointestinal: Soft, non-distended, non-tender abdomen without masses or organomegaly noted. There is no rebound or guarding present. Musculoskeletal: Normal ROM, no tenderness. Strength 5/5. Sensation intact. Radial pulses equal bilaterally 2+. Neurological: A&O x 3. CN II-XII intact, There are no obvious motor or sensory deficits. Coordination appears grossly intact. Speech is normal. Skin: Skin is warm and dry and no rashes or lesions are noted. NO LE swelling or edema appreciated. No swelling of face, hands noted. Psychiatric: Cooperative, appropriate mood & affect, normal judgment. Limitations: no limitations Course Vital Signs 04/17/20 04/17/20 18:15 20:24 Temperature 97.8 F 98.3 F Pulse Rate 60 55 L Respiratory 18 16 Rate Blood Pressure 144/80 132/78 O2 Sat by Pulse 100 Oximetry Medical Decision Making - Medical Decision Making Nontoxic well appearing 69 year old female presenting for swelling possible reaction. BNP compared to that of last time no significant increase. No infiltrates on chest x-ray. Patient has no symptoms such as shortness of breath orthopnea, shortness of breath with exertion or chest pain. Patient does not appear edematous on physical examination. No obvious swelling. No rashes. No lip or tongue swelling. No wheezing. Very minor postnasal drip noted. No anterior rhinorrhea or upper respiratory symptoms detected. This is early spring post nasal drip may be secondary to ALLERGIES recommended daily Claritin. Record patient felt the primary care provider for further medication reaction a condition such as discontinued medications as patient seems to have started some of these medications after her symptoms had began, no clear allergic reaction is present at this time. Discussed case with her family Dr. Rodriguez is agreeable to discharge the patient at this time. - Lab Data Result diagrams: 04/17/20 18:35 04/17/20 18:35 Lab Results 04/17/20 04/17/20 04/17/20 Range/Units 18:35 18:35 18:35 WBC 5.8 (3.8-10.6) k/uL RBC 4.42 (3.80-5.40) m/uL Hgb 12.4 (11.4-16.0) gm/dL Hct 39.4 (34.0-46.0) % MCV 89.1 (80.0-100.0) fL MCH 28.1 (25.0-35.0) pg MCHC 31.6 (31.0-37.0) g/dL RDW 15.0 (11.5-15.5) % Plt Count 267 (150-450) k/uL Neutrophils % 58 % Lymphocytes % 31 % Monocytes % 6 % Eosinophils % 3 % Basophils % 1 % Neutrophils # 3.4 (1.3-7.7) k/uL Lymphocytes # 1.8 (1.0-4.8) k/uL Monocytes # 0.3 (0-1.0) k/uL Eosinophils # 0.2 (0-0.7) k/uL Basophils # 0.0 (0-0.2) k/uL Sodium 140 (137-145) mmol/L Potassium 4.7 (3.5-5.1) mmol/L Chloride 102 (98-107) mmol/L Carbon Dioxide 28 (22-30) mmol/L Anion Gap 10 mmol/L BUN 20 H (7-17) mg/dL Creatinine 1.19 H (0.52-1.04) mg/dL Est GFR (CKD-EPI)AfAm 54 (>60 ml/min/1.73 sqM) Est GFR (CKD-EPI)NonAf 47 (>60 ml/min/1.73 sqM) Glucose 126 H (74-99) mg/dL Calcium 9.9 (8.4-10.2) mg/dL Total Bilirubin 0.4 (0.2-1.3) mg/dL AST 21 (14-36) U/L ALT 16 (4-34) U/L Alkaline Phosphatase 89 (38-126) U/L NT-Pro-B Natriuret Pep 598 pg/mL Total Protein 7.1 (6.3-8.2) g/dL Albumin 4.5 (3.5-5.0) g/dL - EKG Data EKG Comments: Ventricular rate 56 bpm, AR interval 190 ms, QRS methodist 110 ms, QT/QTC 438/422 ms. This is sinus bradycardia. There is no ST elevation or depression noted. Disposition Clinical Impression: Post-nasal drip Disposition: HOME SELF-CARE Condition: Good Instructions (If sedation given, give patient instructions): Seasoning Without Salt (DC), Low-Sodium Diet (ED) Additional Instructions: Please use medication as discussed. Please follow-up with family doctor in the next 2 days. Please return to emergency room if the symptoms increase or worsen or for any other concerns. Is patient prescribed a controlled substance at d/c from ED?: No Referrals: Latonya Erwin MD [Primary Care Provider] - 1-2 days Time of Disposition: 19:34
[2020-04-17 19:02] LABS: Basophils % (A) 1 %; Eosinophils # (A) 0.2 k/uL (0-0.7); Eosinophils % (A) 3 %; HCT 39.4 % (34.0-46.0); HGB 12.4 gm/dL (11.4-16.0); Lymphocytes # (A) 1.8 k/uL (1.0-4.8); Lymphocytes % (A) 31 %; MCH 28.1 pg (25.0-35.0); MCHC 31.6 g/dL (31.0-37.0); MCV 89.1 fL (80.0-100.0); Mean Platelet Volume 7.5; Monocytes # (A) 0.3 k/uL (0-1.0); Monocytes % (A) 6 %; Neutrophils # (A) 3.4 k/uL (1.3-7.7); Neutrophils % (A) 58 %; Platelet Count 267 k/uL (150-450); RBC 4.42 m/uL (3.80-5.40); WBC 5.8 k/uL (3.8-10.6)
[2020-04-17 19:10] LABS: Albumin 4.5 g/dL (3.5-5.0); Calcium 9.9 mg/dL (8.4-10.2); Potassium 4.7 mmol/L (3.5-5.1); Total Bilirubin 0.4 mg/dL (0.2-1.3); Total Protein 7.1 g/dL (6.3-8.2)
--- NOTE | 2020-04-17 19:24 | XR ---
EXAMINATION TYPE: XR chest 2V DATE OF EXAM: 04/17/2020 COMPARISON: 07/26/2013 INDICATION: Swelling allergic reaction TECHNIQUE: Frontal and lateral views of the chest are obtained. FINDINGS: The heart size is normal. The pulmonary vasculature is normal. The lungs are clear. IMPRESSION: 1. No acute pulmonary process.
[2020-04-17 20:25] VITALS: BP 132/78; PULSE 55; RESP 16; TEMP 98.3
== END 2020-04-17 20:24 | disposition home or self-care (01) ==
LOC: EC 18:09
DX: R09.82 Postnasal drip (principal); E11.9 Type 2 diabetes mellitus without complications; F41.9 Anxiety disorder, unspecified; I25.10 Atherosclerotic heart disease of native coronary artery without angina pectoris; I10 Essential (primary) hypertension; I25.2 Old myocardial infarction; Z79.84 Long term (current) use of oral hypoglycemic drugs; Z79.82 Long term (current) use of aspirin; Z79.899 Other long term (current) drug therapy; Z88.1 Allergy status to other antibiotic agents; Z88.8 Allergy status to other drugs, medicaments and biological substances; Z95.5 Presence of coronary angioplasty implant and graft; Z96.653 Presence of artificial knee joint, bilateral
CPT/HCPCS: 36415; 71046; 80053; 83880; 85025; 93005; 99284

== ENCOUNTER → 2020-05-26 | Outpatient (CLI) | payer MEDICARE ==
--- NOTE | 2020-05-26 15:43 | XR ---
EXAMINATION TYPE: XR knee complete RT DATE OF EXAM: 05/26/2020 COMPARISON: None HISTORY: Fall, pain TECHNIQUE: Three-view right knee FINDINGS: Tibial and femoral components are present. No acute fracture or dislocation is evident. No joint effusion is evident. IMPRESSION: 1. Normal three-view right knee with the right knee prosthesis. 2. Follow-up exams can be performed 7-10 days from acute trauma for continued pain.
== END | disposition home or self-care (01) ==
LOC: RADXRMAIN 12:05
PROVIDERS: ATTEND Nurse Practitioner Family
DX: Z96.651 Presence of right artificial knee joint (principal); M25.561 Pain in right knee

== ENCOUNTER → 2020-06-06 | Outpatient (CLI) | payer MEDICARE ==
--- NOTE | 2020-06-06 15:58 | XR ---
EXAMINATION TYPE: XR humerus RT DATE OF EXAM: 06/06/2020 COMPARISON: None HISTORY: Fall, pain TECHNIQUE: Two-view right humerus FINDINGS: No acute fractures are evident. Soft tissues are unremarkable. Joint spaces are preserved. IMPRESSION: 1. Normal 2 view right humerus.
--- NOTE | 2020-06-06 15:59 | XR ---
EXAMINATION TYPE: XR shoulder complete RT DATE OF EXAM: 06/06/2020 COMPARISON: NONE HISTORY: Pain TECHNIQUE: Shoulder examined in 3 projections FINDINGS: The humeral head articulates with the glenoid. The acromio-clavicular junction is normal. No acute fractures or dislocations are evident. There may be some mild degenerative spurring from the inferior humeral head. A follow up study can be performed 7-10 days from acute trauma for continued pain. IMPRESSION: 1. No acute osseous abnormality three-view right shoulder
== END | disposition home or self-care (01) ==
LOC: RADXRMAIN 14:43
PROVIDERS: ATTEND Family Medicine
DX: M25.511 Pain in right shoulder (principal); M79.621 Pain in right upper arm
CPT/HCPCS: 85379

== ENCOUNTER → 2020-07-13 | Outpatient (CLI) | payer MEDICARE ==
[2020-07-13 17:11] LABS: African American GFR (CKD) 75.1 (60.0-200.0); Albumin 4.4 g/dL (3.80-4.90); Albumin/Globulin Ratio 2.1 (1.60-3.17); Anion Gap 11.7 mmol/L (4.00-12.00); BUN/Creat Ratio 14.44 Ratio (12.00-20.00); Calcium 9.6 mg/dL (8.7-10.3); Carbon Dioxide 22.3 mmol/L (21.6-31.8); Chol/HDL Ratio 2.88; Globulin 2.1 g/dL (1.6-3.3); Non-African American GFR(CKD) 64.8 (60.0-200.0); Potassium 4.2 mmol/L (3.5-5.5); Total Bilirubin 0.6 mg/dL (0.2-1.2); Total Protein 6.5 g/dL (6.2-8.2)
== END | disposition home or self-care (01) ==
LOC: LABWHC1 08:58
PROVIDERS: ATTEND Internal Medicine Interventional Cardiology
DX: E78.2 Mixed hyperlipidemia (principal)
CPT/HCPCS: 36415; 80053; 80061

== ENCOUNTER → 2020-09-14 | Outpatient (CLI) | payer MEDICARE ==
--- NOTE | 2020-09-14 16:22 | MR ---
EXAMINATION TYPE: MR brain wo con DATE OF EXAM: 09/14/2020 COMPARISON: None HISTORY: Dizziness and pain CONTRAST: Performed utilizing 0 mL intravenous Gadavist gadolinium contrast. TECHNIQUE: Multiplanar, multiecho imaging on a 3.0 Brigitte magnet is performed through the brain. Stud y is performed within 24 hours of arrival to the hospital. The craniovertebral junction is normal. The pituitary is normal. Diffusion-weighted imaging is performed. No abnormal hyperintensity is present to suggest an acute i ntracranial infarct or acute ischemic change. There are scattered periventricular and deep white matter changes which are becoming confluent within the centrum semiovale. Chronic appearing microvascular ischemic changes most likely within the diffe rential. Temporal lobes appear symmetrical. Ventricles and sulci are appropriate for the patient age. Small cyst may lie within the posterior left parotid gland. IMPRESSIONS: 1. Patchy to confluent periventricular white matter ischemic type changes
--- NOTE | 2020-09-15 09:49 | MR ---
EXAMINATION TYPE: MR shoulder RT wo con DATE OF EXAM: 09/14/2020 COMPARISON: Right shoulder x-ray June 06, 2020 HISTORY: Pain after fall injury 3 months earlier. TECHNIQUE: Multiplanar, multisequence imaging of the right shoulder is performed without contrast. FINDINGS: Rotator Cuff: Increased signal distal supraspinatus and to a greater degree distal infraspinatus tend on without discrete tear. Subscapularis tendon shows wavy contour with increased signal but remains i ntact. Rotator cuff muscle bulk preserved. Acromioclavicular Joint: Moderate to severe narrowing and capsular hypertrophy with mild spurring. Lo ss of underlying fat plane on coronal image 12. Distal acromion morphology unremarkable. Glenohumeral Joint: Moderate narrowing with moderate-sized spur inferior medial humeral head. Moderat e to large joint effusion. Labrum: The superior labrum has significant deformity and increased signal consistent with tear. Biceps Tendon: The long head of biceps is in normal location within bicipital groove. The intracapsul ar portion less well seen but remains intact. Intrasubstance tear not excluded as appears thinned wit h suspected increased signal. Increased nonsimple fluid signal surrounds the tendon sheath Bone marrow signal: Subchondral cystic change medial humeral head. Subchondral cystic change involvin g the osseous glenoid along superior and inferior portions. Other: No additional significant abnormality is appreciated. IMPRESSION: 1. Superior labral tear. 2. Tendinosis of the rotator cuff tendons without tear. Tendinopathy intracapsular portion long head of biceps tendon. 3. Moderate to severe degenerative changes of right shoulder as detailed above.
== END | disposition home or self-care (01) ==
LOC: RADMRIMAIN 11:56
PROVIDERS: ATTEND Family Medicine
DX: I67.82 Cerebral ischemia (principal); M19.011 Primary osteoarthritis, right shoulder; M25.511 Pain in right shoulder; R42 Dizziness and giddiness
CPT/HCPCS: 70551

== ENCOUNTER → 2020-09-27 | Outpatient (CLI) | payer MEDICARE ==
--- NOTE | 2020-09-28 09:01 | MR ---
EXAMINATION TYPE: MR cervical spine wo con DATE OF EXAM: 09/27/2020 COMPARISON: Cervical spine radiograph 08/24/2020 HISTORY: Shoulder pain TECHNIQUE: Multiplanar, multisequence images of the cervical spine were acquired. C2-C3: No evidence for degenerative disc disease. No disc bulge/herniation or protrusion. No Canal stenosis. Foramina are patent bilaterally. C3-C4: No evidence for degenerative disc disease. No disc bulge/herniation or protrusion. No Canal stenosis. Foramina are patent bilaterally. C4-C5: Mild posterior disc bulge. No Canal stenosis. Foramina are mildly narrowed bilaterally. C5-C6: Disc space narrowing and anterior endplate spurring. Mild posterior disc bulging effaces the v entral aspect of the thecal sac. Mild canal stenosis. Foramina are moderately narrowed on the right and severely narrowed on the left. C6-C7: Disc space narrowing and anterior endplate spurring. Mild posterior disc bulging contacts the ventral aspect of the cord. Mild canal stenosis. Foramina are moderately narrowed bilaterally. C7-T1: Mild posterior disc bulge with superimposed central disc protrusion which indents the ventral aspect of the thecal sac. No Canal stenosis. Foramina are mildly narrowed on the left. Cervical segments are intact. There is normal alignment. Cervical spinal cord is of normal signal. Craniovertebral junction relationships are within normal limits. IMPRESSION: 1. Degenerative disc disease with mild canal stenosis at C5-C6 and C6-C7. 2. Multilevel varying degrees of neural foramina narrowing as above, with severe neural foramina rishabh rowing at C5-C6 on the left.
== END | disposition home or self-care (01) ==
LOC: RADMRIMAIN 09:34
PROVIDERS: ATTEND Family Medicine
DX: M48.02 Spinal stenosis, cervical region (principal); M50.322 Other cervical disc degeneration at C5-C6 level
CPT/HCPCS: 72141

== ENCOUNTER → 2021-02-02 | Outpatient (CLI) | payer MEDICARE ==
--- NOTE | 2021-02-02 10:25 | CT ---
EXAMINATION TYPE: CT abdomen pelvis wo con DATE OF EXAM: 02/02/2021 HISTORY: Generalized abdominal pain CT DLP: 984 mGycm. Automated Exposure Control for Dose Reduction was Utilized. TECHNIQUE: CT scan of the abdomen and pelvis is performed with oral but without IV contrast. COMPARISON: CT abdomen and pelvis October 26, 2019 FINDINGS: LUNG BASES: Right coronary and left circumflex artery calcification and/or stents redemonstrated. Cor relate clinically. LIVER/GB: Cholecystectomy clips are redemonstrated. PANCREAS: No significant abnormality is seen. SPLEEN: No significant abnormality is seen. ADRENALS: No significant abnormality is seen. KIDNEYS: No renal stones or hydronephrosis. Roughly 1.0 cm exophytic lesion posterior upper pole left kidney stable on axial image 30 is presumed benign thin-walled cyst. BOWEL: Contrast reaches distal transverse colon level. No suspicious small or large bowel dilatation. Few diverticula in the sigmoid colon. No CT evidence for acute diverticulitis. GENITAL ORGANS: Uterus surgically absent. Few scattered bilateral tiny pelvic phleboliths. Stable nor mal-sized left ovary axial image 67. LYMPH NODES: No greater than 1cm abdominal or pelvic lymph nodes are appreciated. OSSEOUS STRUCTURES: Moderate axial joint space loss in both hips. Moderate to severe disc space narro wing L5-S1 level with mild to moderate anterior spurring . Mild to moderate additional multilevel spu rring of the thoracolumbar spine. Multilevel spinous process hypertrophy. Multilevel facet arthropath y in the mid to lower lumbar spine. Spinal canal effacement noted at L3-L4 and L4-L5 levels. OTHER: Mild to moderate calcified plaque of the aorta extends into branch vessels. IMPRESSION: No suspicious new or acute findings seen.
== END ==
LOC: RADCTMAIN 07:55
PROVIDERS: ATTEND Family Medicine
DX: N28.1 Cyst of kidney, acquired (principal)
CPT/HCPCS: 74176

== ENCOUNTER 2021-02-18 14:04 | Observation (INO) | payer MEDICARE ==
[2021-02-18 14:50] LABS: Basophils % (A) 0 %; Eosinophils % (A) 0 %; HCT 36.9 % (34.0-46.0); HGB 12.8 gm/dL (11.4-16.0); Lymphocytes # (A) 0.9 k/uL (1.0-4.8); Lymphocytes % (A) 16 %; MCH 30.2 pg (25.0-35.0); MCHC 34.7 g/dL (31.0-37.0); Mean Platelet Volume 7.2; Monocytes # (A) 0.1 k/uL (0-1.0); Monocytes % (A) 3 %; Neutrophils # (A) 4.3 k/uL (1.3-7.7); Neutrophils % (A) 79 %; Platelet Count 224 k/uL (150-450); Poikilocytosis Slight; RBC 4.24 m/uL (3.80-5.40); RDW 14.5 % (11.5-15.5); WBC 5.4 k/uL (3.8-10.6)
[2021-02-18] MEDS ORDERED: ACETAMINOPHEN TAB 325 MG TAB PO STA (14:52)
--- NOTE | 2021-02-18 14:52 | XR ---
EXAMINATION TYPE: XR chest 2V DATE OF EXAM: 02/18/2021 COMPARISON: 04/17/2020 HISTORY: Weakness. Fever. TECHNIQUE: 2 views FINDINGS: There is some increased interstitial density in both lungs. Heart size is fairly normal. Th ere is no obvious heart failure. There is no pleural effusion. IMPRESSION: Increased interstitial density compared to old exam could be some developing interstitial pneumonia.
[2021-02-18 14:56] LABS: Appearance,Urine Clear (Clear); Bilirubin,Urine Negative (Negative); Blood,Urine Negative (Negative); Color,Urine Yellow; Glucose,Urine (UA) 4+ (Negative); Ketones,Urine Negative (Negative); Leukocyte Esterase,Urine Negative (Negative); Nitrite,Urine Negative (Negative); Protein,Urine Trace (Negative); Specific Gravity,Urine 1.034 (1.001-1.035); Urobilinogen,Urine <2.0 mg/dL (<2.0)
--- NOTE | 2021-02-18 15:00 | ED ---
Weakness HPI - General Chief complaint: Weakness Stated complaint: Weakness,Fever, COVID + Time Seen by Provider: 02/18/21 14:11 Source: patient, RN notes reviewed Mode of arrival: wheelchair Limitations: no limitations - History of Present Illness Initial comments: 70-year-old white female patient presents to the emergency room in no acute distress, states tested positive for Covid 19 on 02/10. Has had 8 days of symptoms of dry cough shortness of breath and generalized weakness. Patient states also tested positive is here in the emergency room to be seen as well doing worse then she is with shortness of breath. Patient has a history of coronary artery disease, diabetes, hypertension, [place] with a heart catheterization in August 2019. Surgical history of a cholecystectomy. Temperature today 99.5 blood pressure 120/66 heart rate of 82 respiratory rate 2296% on room air. Patient states able to ambulate home but increasingly weak, has not had much of an appetite due to weakness. MD Complaint: generalized weakness -: days(s) (8) Location: generalized Consistency: constant Improves with: rest Worsens with: movement, exertion Context: recent illness (covid positive 02/10, 8 days of symptoms) Associated Symptoms: headaches (fullness), loss of appetite, other (cough) - Related Data Home Medications Medication Instructions Recorded Confirmed ALPRAZolam [Xanax] 0.25 mg PO BID PRN 09/01/19 02/18/21 Aspirin [Adult Low Dose Aspirin EC] 81 mg PO DAILY 09/01/19 02/18/21 Isosorbide Mononitrate [Isosorbide 30 mg PO DAILY 09/01/19 02/18/21 Mononitrate ER] atenoloL [Tenormin] 50 mg PO DAILY 09/01/19 02/18/21 Empagliflozin [Jardiance] 25 mg PO DAILY 04/17/20 02/18/21 Famotidine 20 mg PO BID 04/17/20 02/18/21 Pioglitazone [Actos] 15 mg PO DAILY 04/17/20 02/18/21 Ascorbic Acid [Vitamin C] 500 mg PO DAILY 02/18/21 02/18/21 Cholecalciferol [Vitamin D3 (25 25 mcg PO DAILY 02/18/21 02/18/21 Mcg = 1000 Iu)] Losartan Potassium [Cozaar] 100 mg PO DAILY 02/18/21 02/18/21 Semaglutide [Ozempic] 1 mg SQ MO 02/18/21 02/18/21 Zinc 50 mg PO DAILY 02/18/21 02/18/21 Previous Rx's Medication Instructions Recorded Atorvastatin [Lipitor] 40 mg PO HS #90 tab 09/04/19 Allergies Allergy/AdvReac Type Severity Reaction Status Date / Time cephalexin [From Keflex] Allergy Itching Verified 02/18/21 16:43 ticlopidine [From Ticlid] Allergy Rash/Hives Verified 02/18/21 16:43 Review of Systems ROS Statement: Those systems with pertinent positive or pertinent negative responses have been documented in the HPI. ROS Other: All systems not noted in ROS Statement are negative. Past Medical History Past Medical History: Coronary Artery Disease (CAD), Diabetes Mellitus, Hyperlipidemia, Hypertension, Myocardial Infarction ([place]) Additional Past Medical History / Comment(s): abd pain, had seizure one time post had toxemia Last Myocardial Infarction Date:: 1997 History of Any Multi-Drug Resistant Organisms: None Reported Past Surgical History: Section, Cholecystectomy, Heart Catheterization With Stent, Joint Replacement, Orthopedic Surgery Additional Past Surgical History / Comment(s): bilat knees, STENT RCA 09/03/19 DR MOSQUERA Past Anesthesia/Blood Transfusion Reactions: No Reported Reaction Date of Last Stent Placement:: 09/03/19 Past Psychological History: Anxiety Smoking Status: Never smoker Past Alcohol Use History: None Reported Past Drug Use History: None Reported - Past Family History Mother Additional Family Medical History / Comment(s): , BROKEN HIP- BROKEN FOOT- GANGRENE Father Additional Family Medical History / Comment(s): General Exam Limitations: no limitations General appearance: alert, in no apparent distress Head exam: Present: atraumatic, normocephalic, normal inspection Eye exam: Present: normal appearance, PERRL, EOMI. Absent: scleral icterus, conjunctival injection, periorbital swelling ENT exam: Present: normal exam, other (dry sticky mucous membranes) Neck exam: Present: normal inspection. Absent: tenderness, meningismus, lymphadenopathy Respiratory exam: Present: normal lung sounds bilaterally. Absent: respiratory distress, wheezes, rales, rhonchi, stridor Cardiovascular Exam: Present: regular rate, normal rhythm, normal heart sounds. Absent: JVD GI/Abdominal exam: Present: soft, normal bowel sounds. Absent: tenderness, guarding Extremities exam: Present: normal inspection, full ROM, normal capillary refill. Absent: tenderness, pedal edema, joint swelling, calf tenderness Neurological exam: Present: alert, oriented X3, CN II-XII intact Psychiatric exam: Present: normal affect, normal mood Skin exam: Present: warm, dry, intact, normal color. Absent: rash, cyanosis, diaphoretic, erythema Course Vital Signs 02/18/21 02/18/21 02/18/21 14:05 14:49 14:50 Temperature 99.5 F 101.9 F H Pulse Rate 82 84 Pulse Rate [ 84 Sheet Metal Pattern Cutter ] Respiratory 22 18 16 Rate Blood Pressure 128/66 151/75 O2 Sat by Pulse 96 94 L Oximetry 02/18/21 02/18/21 02/18/21 16:06 16:40 17:14 Temperature 101.2 F H 100.0 F H Pulse Rate 75 74 72 Pulse Rate [ Sheet Metal Pattern Cutter ] Respiratory 18 18 18 Rate Blood Pressure 124/60 111/63 123/59 O2 Sat by Pulse 90 L 91 L 91 L Oximetry 02/18/21 02/18/21 02/18/21 17:21 17:29 18:27 Temperature Pulse Rate Pulse Rate [ Sheet Metal Pattern Cutter ] Respiratory Rate Blood Pressure O2 Sat by Pulse 94 L 90 L 92 L Oximetry - Reevaluation(s) Reevaluation #1: 02/18/21 16:58 In discussing monoclonal antibodies with patient, patient's oxygen saturation fell to 89% on room air. Patient states she does not feel well but is willing to still to do the infusion. Explained to patient that with a low oxygen saturation and needed oxygen supplementation she will now need to be admitted Time: 16:58 Reevaluation #2: 02/18/21 18:28 Dr. Bee at bedside to speak with patient, oxygen saturation remaining on room air at 92%, Dr. Bee called Hemanth in pharmacy to send Bamlanivimab to infuse. Time: 18:28 EKG Findings - EKG Results: EKG: interpreted by LAURITA WNL, sinus rhythm (Ventricular rate of 83, MN interval 0.17, QRS of .98, QTc of 437) Medical Decision Making - Medical Decision Making Case discussed with Dr. Mo. CTA negative for PE, d-dimer 1.31, potassium 4.4, white blood count of 5.4, patient has had 8 days of symptoms and is a candidate for bamlanivimab. case discussed with Dr. Bee and she recommended giving Bamlanivimab and obs patient. Pt agreeable to this plan. - Lab Data Result diagrams: 02/18/21 14:15 02/18/21 14:15 Lab Results 02/18/21 02/18/21 02/18/21 Range/Units 14:15 14:15 14:15 WBC 5.4 (3.8-10.6) k/uL RBC 4.24 (3.80-5.40) m/uL Hgb 12.8 (11.4-16.0) gm/dL Hct 36.9 (34.0-46.0) % MCV 87.0 (80.0-100.0) fL MCH 30.2 (25.0-35.0) pg MCHC 34.7 (31.0-37.0) g/dL RDW 14.5 (11.5-15.5) % Plt Count 224 (150-450) k/uL MPV 7.2 Neutrophils % 79 % Lymphocytes % 16 % Monocytes % 3 % Eosinophils % 0 % Basophils % 0 % Neutrophils # 4.3 (1.3-7.7) k/uL Lymphocytes # 0.9 L (1.0-4.8) k/uL Monocytes # 0.1 (0-1.0) k/uL Eosinophils # 0.0 (0-0.7) k/uL Basophils # 0.0 (0-0.2) k/uL Poikilocytosis Slight PT 10.6 (9.0-12.0) sec INR 1.0 (<1.2) APTT 26.2 (22.0-30.0) sec D-Dimer 1.31 H (<0.60) mg/L FEU Sodium 133 L (137-145) mmol/L Potassium 4.4 (3.5-5.1) mmol/L Chloride 100 (98-107) mmol/L Carbon Dioxide 23 (22-30) mmol/L Anion Gap 10 mmol/L BUN 14 (7-17) mg/dL Creatinine 0.90 (0.52-1.04) mg/dL Est GFR (CKD-EPI)AfAm 75 (>60 ml/min/1.73 sqM) Est GFR (CKD-EPI)NonAf 65 (>60 ml/min/1.73 sqM) Glucose 153 H (74-99) mg/dL Plasma Lactic Acid Rosas (0.7-2.0) mmol/L Calcium 9.0 (8.4-10.2) mg/dL Magnesium 1.8 (1.6-2.3) mg/dL Total Bilirubin 0.9 (0.2-1.3) mg/dL AST 33 (14-36) U/L ALT 18 (4-34) U/L Alkaline Phosphatase 76 (38-126) U/L Troponin I (0.000-0.034) ng/mL Total Protein 6.5 (6.3-8.2) g/dL Albumin 3.8 (3.5-5.0) g/dL 02/18/21 02/18/21 Range/Units 14:15 14:15 WBC (3.8-10.6) k/uL RBC (3.80-5.40) m/uL Hgb (11.4-16.0) gm/dL Hct (34.0-46.0) % MCV (80.0-100.0) fL MCH (25.0-35.0) pg MCHC (31.0-37.0) g/dL RDW (11.5-15.5) % Plt Count (150-450) k/uL MPV Neutrophils % % Lymphocytes % % Monocytes % % Eosinophils % % Basophils % % Neutrophils # (1.3-7.7) k/uL Lymphocytes # (1.0-4.8) k/uL Monocytes # (0-1.0) k/uL Eosinophils # (0-0.7) k/uL Basophils # (0-0.2) k/uL Poikilocytosis PT (9.0-12.0) sec INR (<1.2) APTT (22.0-30.0) sec D-Dimer (<0.60) mg/L FEU Sodium (137-145) mmol/L Potassium (3.5-5.1) mmol/L Chloride (98-107) mmol/L Carbon Dioxide (22-30) mmol/L Anion Gap mmol/L BUN (7-17) mg/dL Creatinine (0.52-1.04) mg/dL Est GFR (CKD-EPI)AfAm (>60 ml/min/1.73 sqM) Est GFR (CKD-EPI)NonAf (>60 ml/min/1.73 sqM) Glucose (74-99) mg/dL Plasma Lactic Acid Rosas 1.5 (0.7-2.0) mmol/L Calcium (8.4-10.2) mg/dL Magnesium (1.6-2.3) mg/dL Total Bilirubin (0.2-1.3) mg/dL AST (14-36) U/L ALT (4-34) U/L Alkaline Phosphatase (38-126) U/L Troponin I <0.012 (0.000-0.034) ng/mL Total Protein (6.3-8.2) g/dL Albumin (3.5-5.0) g/dL Disposition Clinical Impression: COVID-19 Disposition: ADMITTED IP TO THIS HOSP Condition: Good Is patient prescribed a controlled substance at d/c from ED?: No Time of Disposition: 17:29 Decision Date: 02/18/21
[2021-02-18 15:04] LABS: Albumin 3.8 g/dL (3.5-5.0); Magnesium 1.8 mg/dL (1.6-2.3); Potassium 4.4 mmol/L (3.5-5.1); Total Bilirubin 0.9 mg/dL (0.2-1.3); Total Protein 6.5 g/dL (6.3-8.2)
[2021-02-18 15:05] LABS: Partial Thromboplastin Time 26.2 sec (22.0-30.0); Prothrombin Time 10.6 sec (9.0-12.0)
[2021-02-18 15:11] LABS: D-Dimer 1.31 mg/L FEU (<0.60)
--- NOTE | 2021-02-18 16:04 | CT ---
EXAMINATION TYPE: CT angio chest DATE OF EXAM: 02/18/2021 COMPARISON: None HISTORY: ELEVATED D DIMER COVID + CT DLP: 287.4 mGycm Automated exposure control for dose reduction was used. CONTRAST: Performed with IV Contrast, patient injected with 100 mL of Isovue 370. There are 3-D post processed images. There is patchy groundglass interstitial infiltrates in both lungs. There is patchy atelectasis at th e lung bases. Heart size is fairly normal. There is no pericardial effusion. There is no pleural effu north. There is no mediastinal adenopathy. There are no hilar masses. Thoracic aorta is intact. There is no aneurysm or dissection. There is normal contrast opacification of the pulmonary arteries. There are n o filling defects. Bony thorax is intact. IMPRESSION: No evidence of pulmonary embolism. Patchy pulmonary interstitial pneumonia.
[2021-02-18] MEDS ORDERED: ACETAMINOPHEN TAB 325 MG TAB PO PRN (17:05)
[2021-02-18] MEDS ORDERED: NALOXONE 0.4 MG/ML 1 ML VIAL IV PRN (17:05)
[2021-02-18] MEDS ORDERED: DEXAMETHASONE SOD PHOSPHATE 10 MG/ML 1 ML VIAL IV STA (17:16)
[2021-02-18] MEDS ORDERED: BAMLANIVIMAB 700 MG in SODIUM CHLORIDE 0.9% 50 ML IVPB ONE (19:00)
[2021-02-18] MEDS ORDERED: ONDANSETRON 4 MG/2 ML VIAL IVP PRN (20:01)
[2021-02-18] MEDS ORDERED: bisacodyL 5 MG TABLET.DR PO PRN (20:01)
[2021-02-18] MEDS ORDERED: MELATONIN 3 MG TABLET PO PRN (20:01)
--- NOTE | 2021-02-18 20:08 | P.HPIM ---
History of Present Illness H&P Date: 02/18/21 Chief Complaint: Selina Patient is a 70-year-old female past medical history of diabetes mellitus type 2 treated with oral and injectable medications, hypertension, dyslipidemia, and coronary artery disease status post PCI 2 who presented to the emergency department with 8 days of Covid 19 symptoms and worsening fatigue. The ER she underwent an extensive evaluation. Her vital signs within normal limits on admission. She was satting 91-92% on room air. Laboratory analysis demonstrated d-dimer of 1.31, sodium 133, glucose 153, and was otherwise unremarkable. Urinalysis showed 4+ glucose. Which is secondary to her diabetic medications. She underwent a CT of the chest secondary to her elevated d-dimer which showed patchy pulmonary interstitial pneumonia. She was initially slated to go home and she was maintaining an O2 sat greater than 90% on room air. A dose of bamlanivimab was ordered and given. Patient was anxious about going home due to her level of fatigue. Her and her had been working together to complete ADLS due to severe fatigue from COVID. She will be monitored overnight to ensure stable respiratory status. Patient seen and examined at bedside in the emergency department. She reports that she developed Covid symptoms approximately 8 days ago, her also developed symptoms. They went and got tested to be positive. She reports that her symptoms started with nasal congestion and headache, she then developed m uscle aches and severe fatigue. She denies any significant cough or shortness of breath. She states it is very difficult to complete her ADLs secondary to fatigue. She is very concerned about going home as her will need to be admitted to the hospital and they have been working together to complete simple tasks such as making coffee and breakfast. She reports that she has had a poor appetite and has lost 12 pounds over the last 8 days. She denies any nausea, vomiting, or diarrhea. She denies any loss of taste or smell. Review of Systems Pertinent positives and negatives as discussed in HPI, a complete review of systems was performed and all other systems are negative. Past Medical History Past Medical History: Coronary Artery Disease (CAD), Diabetes Mellitus, Hyperlipidemia, Hypertension, Myocardial Infarction ([place]) Additional Past Medical History / Comment(s): had seizure one time post had toxemia Last Myocardial Infarction Date:: 1997 History of Any Multi-Drug Resistant Organisms: None Reported Past Surgical History: Section, Cholecystectomy, Heart Catheterization With Stent, Joint Replacement, Orthopedic Surgery Additional Past Surgical History / Comment(s): bilat knees, STENT RCA 09/03/19 DR MOSQUERA Past Anesthesia/Blood Transfusion Reactions: No Reported Reaction Date of Last Stent Placement:: 09/03/19 Past Psychological History: Anxiety Smoking Status: Never smoker Past Alcohol Use History: None Reported Past Drug Use History: None Reported - Past Family History Mother Additional Family Medical History / Comment(s): , BROKEN HIP- BROKEN FOOT- GANGRENE Father Additional Family Medical History / Comment(s): Medications and Allergies Home Medications Medication Instructions Recorded Confirmed Type ALPRAZolam [Xanax] 0.25 mg PO BID PRN 09/01/19 02/18/21 History Aspirin [Adult Low Dose Aspirin EC] 81 mg PO DAILY 09/01/19 02/18/21 History Isosorbide Mononitrate [Isosorbide 30 mg PO DAILY 09/01/19 02/18/21 History Mononitrate ER] atenoloL [Tenormin] 50 mg PO DAILY 09/01/19 02/18/21 History Atorvastatin [Lipitor] 40 mg PO HS #90 tab 09/04/19 02/18/21 Rx Empagliflozin [Jardiance] 25 mg PO DAILY 04/17/20 02/18/21 History Famotidine 20 mg PO BID 04/17/20 02/18/21 History Pioglitazone [Actos] 15 mg PO DAILY 04/17/20 02/18/21 History Ascorbic Acid [Vitamin C] 500 mg PO DAILY 02/18/21 02/18/21 History Cholecalciferol [Vitamin D3 (25 25 mcg PO DAILY 02/18/21 02/18/21 History Mcg = 1000 Iu)] Losartan Potassium [Cozaar] 100 mg PO DAILY 02/18/21 02/18/21 History Semaglutide [Ozempic] 1 mg SQ MO 02/18/21 02/18/21 History Zinc 50 mg PO DAILY 02/18/21 02/18/21 History Allergies Allergy/AdvReac Type Severity Reaction Status Date / Time cephalexin [From Keflex] Allergy Itching Verified 02/18/21 16:43 ticlopidine [From Ticlid] Allergy Rash/Hives Verified 02/18/21 16:43 Physical Exam Osteopathic Statement: *. No significant issues noted on an osteopathic structural exam other than those noted in the History and Physical/Consult. Vitals: Vital Signs Temp Pulse Pulse Resp BP Pulse Ox 02/18/21 19:32 97.9 F 73 18 107/55 93 L 02/18/21 18:44 98.5 F 72 18 135/70 92 L 02/18/21 18:27 92 L 02/18/21 17:29 90 L 02/18/21 17:21 94 L 02/18/21 17:14 100.0 F H 72 18 123/59 91 L 02/18/21 16:40 101.2 F H 74 18 111/63 91 L 02/18/21 16:06 75 18 124/60 90 L 02/18/21 14:50 84 16 02/18/21 14:49 101.9 F H 84 18 151/75 94 L 02/18/21 14:05 99.5 F 82 22 128/66 96 Intake and Output 02/18/21 02/18/21 02/18/21 06:59 14:59 22:59 Other: Weight 77.111 kg General: non toxic, no distress, appears at stated age Derm: warm, dry Head: atraumatic, normocephalic, symmetric Eyes: EOMI, no lid lag, anicteric sclera, pupils equal round reactive to light ENT: Nose and ears atraumatic, no thrush, no pharyngeal erythema Neck: No thyromegaly, no cervical lymphadenopathy, trachea midline, supple Mouth: no lip lesion, mucus membranes dry Cardiovascular: S1S2 reg, no murmur, positive posterior tibial pulse bilateral, no edema, capillary refill less than 2 seconds Lungs: Decreased breath sounds bilateral, no ronchi, no rales, no wheeze, no accessory muscle use Abdominal: soft, nontender to palpation, no guarding, no appreciable organom egaly, normal bowel sounds Ext: no gross muscle atrophy, muscle strength muscle strength 5 out of 5 in all 4 extremities, no contractures Neuro: CN II-XI grossly intact, light touch intact all 4 extremities, finger to nose within normal limits, Psych: Alert, oriented, appropriate affect Results CBC & Chem 7: 02/18/21 14:15 02/18/21 14:15 Labs: Abnormal Lab Results - Last 24 Hours (Table) 02/18/21 02/18/21 02/18/21 Range/Units 14:15 14:15 14:15 Lymphocytes # 0.9 L (1.0-4.8) k/uL D-Dimer 1.31 H (<0.60) mg/L FEU Sodium 133 L (137-145) mmol/L Glucose 153 H (74-99) mg/dL Urine Protein (Negative) Urine Glucose (UA) (Negative) 02/18/21 Range/Units Unknown Lymphocytes # (1.0-4.8) k/uL D-Dimer (<0.60) mg/L FEU Sodium (137-145) mmol/L Glucose (74-99) mg/dL Urine Protein Trace H (Negative) Urine Glucose (UA) 4+ H (Negative) Chest x-ray: report reviewed CT scan - chest: report reviewed Thrombosis Risk Factor Assmnt - DVT/VTE Prophylaxis DVT/VTE Prophylaxis: Pharmacologic Prophylaxis ordered Assessment and Plan Assessment: COVID 19 upper respiratory tract infection - Bam administered in the ED - observation due to severe fatigue - Vit C, VIt D, Zinc - Recheck COVID labs in AM DM 2 - well controlled at home -Hold oral medications -Follow blood sugars -Sliding-scale insulin Hypertension, controlled -Cozaar, atenolol -Follow blood pressures Coronary artery disease -Statin, beta lashawn, aspirin, Imdur Dyslipidemia -Statin Obesity with BMI 33.2 -Outpatient structured weight loss Patient is high-risk for deterioration due to Covid 19 infection secondary to being greater than age 70, having diabetes, heart disease, and obesity. She was administered monoclonal antibody in the emergency department. She'll be monitored overnight with anticipated discharge in a.m. The patient is placed in observation with an anticipated less than 2 midnight stay for evaluation of Covid 19 upper respiratory tract infection. Surrogate decision-maker: Daughter CODE STATUS:full DVT prophylaxis: SCDs Discussed with: Patient Anticipated discharge date: in AM Anticipated discharge place: home A total of 55 minutes was spent on the care of this complex patient more than 50% of the time was spent in counseling and care coordination.
[2021-02-18] MEDS: ATORVASTATIN 40 MG TAB PO SCH (20:58)
[2021-02-18] MEDS: SODIUM CHLORIDE 0.9% 1,000 ML IV SCH (20:58)
[2021-02-18] MEDS: FAMOTIDINE 20 MG TAB PO SCH (20:58)
[2021-02-18 21:07] LABS: Glucose,Whole Blood 170 mg/dL (75-99)
[2021-02-18] MEDS: INSULIN ASPART (NovoLOG) 100 UNIT/ML VIAL SQ SCH (21:23)
[2021-02-19 06:14] LABS: Basophils % (A) 0 %; Eosinophils % (A) 0 %; HCT 36.9 % (34.0-46.0); HGB 12.1 gm/dL (11.4-16.0); Lymphocytes # (A) 0.5 k/uL (1.0-4.8); Lymphocytes % (A) 6 %; MCH 29.1 pg (25.0-35.0); MCHC 32.8 g/dL (31.0-37.0); MCV 88.9 fL (80.0-100.0); Mean Platelet Volume 7.4; Monocytes # (A) 0.2 k/uL (0-1.0); Monocytes % (A) 2 %; Neutrophils # (A) 7.1 k/uL (1.3-7.7); Neutrophils % (A) 91 %; Platelet Count 228 k/uL (150-450); Poikilocytosis Slight; RBC 4.16 m/uL (3.80-5.40); RDW 14.9 % (11.5-15.5); WBC 7.8 k/uL (3.8-10.6)
[2021-02-19 06:32] LABS: ALT 17 U/L (4-34); AST 30 U/L (14-36); African American GFR (CKD) 84 (>60 ml/min/1.73 sqM); Albumin 3.5 g/dL (3.5-5.0); Albumin/Globulin Ratio 1.3; Alkaline Phosphatase 76 U/L (38-126); Anion Gap 10 mmol/L; Blood Urea Nitrogen 17 mg/dL (7-17); C Reactive Protein 57.9 mg/L (<10.0); Carbon Dioxide 22 mmol/L (22-30); Chloride 105 mmol/L (98-107); Globulin 2.6 g/dL; Glucose 187 mg/dL (74-99); LDH 884 U/L (313-618); Magnesium 2.1 mg/dL (1.6-2.3); Non-African American GFR(CKD) 73 (>60 ml/min/1.73 sqM); Potassium 4.3 mmol/L (3.5-5.1); Sodium 137 mmol/L (137-145); Total Bilirubin 0.8 mg/dL (0.2-1.3); Total Protein 6.1 g/dL (6.3-8.2)
[2021-02-19 07:11] LABS: Glucose,Whole Blood 181 mg/dL (75-99)
[2021-02-19] MEDS: CHOLECALCIFEROL 25 MCG (1000 IU) TABLET PO SCH (08:15)
[2021-02-19] MEDS: ALPRAZolam 0.25 MG TAB PO PRN ×2 (08:15→20:57)
[2021-02-19] MEDS: ENOXAPARIN 40 MG/0.4 ML SYRINGE SQ SCH (08:15)
[2021-02-19] MEDS: FAMOTIDINE 20 MG TAB PO SCH ×2 (08:15→20:57)
[2021-02-19] MEDS: ASPIRIN 81 MG PO SCH (08:15)
[2021-02-19] MEDS: LOSARTAN 50 MG TAB PO SCH (08:15)
[2021-02-19] MEDS: ZINC SULFATE 220 MG CAP PO SCH (08:15)
[2021-02-19] MEDS: ISOSORBIDE MONONITRATE ER 30 MG TAB.ER.24H PO SCH (08:15)
[2021-02-19] MEDS: atenoloL 50 MG TAB PO SCH (08:15)
[2021-02-19] MEDS: INSULIN ASPART (NovoLOG) 100 UNIT/ML VIAL SQ SCH ×4 (08:15→20:57)
[2021-02-19] MEDS: ASCORBIC ACID 500 MG TAB PO SCH (08:15)
[2021-02-19] MEDS ORDERED: SODIUM CHLORIDE 0.9% 500 ML 500 ML IV ONE (10:39)
[2021-02-19 11:11] LABS: Glucose,Whole Blood 196 mg/dL (75-99)
--- NOTE | 2021-02-19 15:39 | P.PN ---
Subjective Progress Note Date: 02/19/21 Principal diagnosis: fatigue Patient is a 70-year-old female past medical history of diabetes mellitus type 2 treated with oral and injectable medications, hypertension, dyslipidemia, and coronary artery disease status post PCI 2 who presented to the emergency department with 8 days of Covid 19 symptoms and worsening fatigue. The ER she underwent an extensive evaluation. Her vital signs within normal limits on admission. She was satting 91-92% on room air. Laboratory analysis demonstrated d-dimer of 1.31, sodium 133, glucose 153, and was otherwise unremarkable. Urinalysis showed 4+ glucose. Which is secondary to her diabetic medications. She underwent a CT of the chest secondary to her elevated d-dimer which showed patchy pulmonary interstitial pneumonia. She was initially slated to go home and she was maintaining an O2 sat greater than 90% on room air. A dose of bamlanivimab was ordered and given. Patient was anxious about going home due to her level of fatigue. Her and her had been working together to complete ADLS due to severe fatigue from COVID. She was monitored overnight to ensure stable respiratory status. Her O2 requirements were stable but she developed worsening dizziness on the morning of 02/19 orthostatic vitals were mil dly positive. Patient seen and examined at bedside. She denies any shortness of breath. She is still feeling fatigued. Her main complaint is dizziness that started this morning. She denies any overt chest pain, she continues to have a mild headache. General: non toxic, no distress, appears at stated age Derm: warm, dry Head: atraumatic, normocephalic, symmetric Eyes: EOMI, no lid lag, anicteric sclera Mouth: no lip lesion, mucus membranes dry Cardiovascular: S1S2 reg, no murmur, positive posterior tibial pulse bilateral, Lungs: CTA bilateral, no rhonchi, no rales , no accessory muscle use Abdominal: soft, nontender to palpation, no guarding, no appreciable organomegaly Ext: no gross muscle atrophy, no edema, no contractures Neuro: CN II-XI grossly intact, no focal neuro deficits Psych: Alert, oriented, appropriate affect An attempting to walk the patient to the bathroom she hasn't seemingly dizzy and has problems with coordination. She requires assistance to maintain balance. Dizziness, + orthostatic vital signs Covid 19 upper respiratory tract infection Diabetes mellitus type 2 well controlled Hypertension Coronary artery disease Dyslipidemia Morbid obesity with BMI 33.2 Patient Covid 19 status appears to be stable. She is still not requiring oxygen. Will remain as observation until able to recheck this afternoon. 500 mL fluid bolus then recheck orthostatic vitals. If improved likely home. If continues to have dizziness we'll proceed with further investigation. Continue with vitamin C, vitamin D, and zinc. Patient ends up requiring oxygen could consider initiating steroids and REM severe. Continue to monitor closely. Objective - Vital Signs Vital signs: Vital Signs Temp 98.6 F 02/19/21 14:00 Pulse 90 02/19/21 14:00 Resp 18 02/19/21 14:00 BP 110/67 02/19/21 14:00 Pulse Ox 93 L 02/19/21 14:00 Intake & Output 02/18/21 02/19/21 02/19/21 18:59 06:59 18:59 Weight 77.111 kg 77.111 kg Other: Voiding Method Toilet # Voids 1 - Labs CBC & Chem 7: 02/19/21 05:46 02/19/21 05:46 Labs: Abnormal Lab Results - Last 24 Hours (Table) 02/18/21 02/19/21 02/19/21 Range/Units 20:57 05:46 05:46 Lymphocytes # 0.5 L (1.0-4.8) k/uL D-Dimer 1.27 H (<0.60) mg/L FEU Glucose (74-99) mg/dL POC Glucose (mg/dL) 170 H (75-99) mg/dL Lactate Dehydrogenase (313-618) U/L C-Reactive Protein (<10.0) mg/L Total Protein (6.3-8.2) g/dL 02/19/21 02/19/21 02/19/21 Range/Units 05:46 07:09 11:10 Lymphocytes # (1.0-4.8) k/uL D-Dimer (<0.60) mg/L FEU Glucose 187 H (74-99) mg/dL POC Glucose (mg/dL) 181 H 196 H (75-99) mg/dL Lactate Dehydrogenase 884 H (313-618) U/L C-Reactive Protein 57.9 H (<10.0) mg/L Total Protein 6.1 L (6.3-8.2) g/dL
--- NOTE | 2021-02-19 16:03 | P.CNPUL ---
History of Present Illness Consult date: 02/19/21 Reason for consult: dyspnea, pneumonia History of present illness: 70-year-old female patient who presented to the ED with symptoms which were hi ghly suggestive of covid 19 infection. Her currently is also admitted to the hospital for the same reason. The patient already tested positive on 02/10/2021.. The patient is known to have diabetes mellitus type 2 and hypertension hyperlipidemia and coronary artery disease and she has undergone previous PCI. In the emergency department, the patient had complaints of some shortness of breath. She was initiated on monoclonal antibody treatment and the patient was given a dose of bamlanivimab. Following that, the patient became quite anxious and she felt more fatigued and she didn't want to go home and she got hospitalized. The patient was feeling quite fatigued. Her oxygen requ irements were essentially stable and the vitals remained stable. She is not having any significant shortness of breath at this point in time. Her inflammatory markers showing LVH of 84 with a CRP of 57.9 and the patient's d- dimer is at 1.27. The chest x-ray showed minimal interstitial bilateral p ulmonary infiltrates. The CTA showed the same. There was no evidence of any pulmonary embolism. There was some patchy interstitial infiltrates bilaterally. Her current pulse ox was 93% on room air oxygen. The patient received Decadron 10 mg IV and currently she is going to maintain a 6 mg of Decadron a daily basis. She is on IV fluids with normal state rate of 75 mL an hour. She is also on Lovenox 40 mg subcu for DVT prophylaxis. Review of Systems 14 point review of system was done and the positive findings are almost above history of present illness Past Medical History Past Medical History: Coronary Artery Disease (CAD), Diabetes Mellitus, Hyperlipidemia, Hypertension, Myocardial Infarction (DE) Additional Past Medical History / Comment(s): had seizure one time post had toxemia Last Myocardial Infarction Date:: 1997 History of Any Multi-Drug Resistant Organisms: None Reported Past Surgical History: Section, Cholecystectomy, Heart Catheterization With Stent, Joint Replacement, Orthopedic Surgery Additional Past Surgical History / Comment(s): bilat knees, STENT RCA 09/03/19 DR MOSQUERA Past Anesthesia/Blood Transfusion Reactions: No Reported Reaction Date of Last Stent Placement:: 09/03/19 Past Psychological History: Anxiety Smoking Status: Never smoker Past Alcohol Use History: None Reported Past Drug Use History: None Reported - Past Family History Mother Additional Family Medical History / Comment(s): , BROKEN HIP- BROKEN FOOT- GANGRENE Father Additional Family Medical History / Comment(s): Medications and Allergies Home Medications Medication Instructions Recorded Confirmed Type RX: ALPRAZolam [Xanax] 0.25 mg PO BID PRN 09/01/19 02/18/21 History RX: Aspirin [Adult Low Dose 81 mg PO DAILY 09/01/19 02/18/21 History Aspirin EC] RX: Isosorbide Mononitrate 30 mg PO DAILY 09/01/19 02/18/21 History [Isosorbide Mononitrate ER] RX: atenoloL [Tenormin] 50 mg PO DAILY 09/01/19 02/18/21 History RX: Atorvastatin [Lipitor] 40 mg PO HS #90 tab 09/04/19 02/18/21 Rx Empagliflozin [Jardiance] 25 mg PO DAILY 04/17/20 02/18/21 History Pioglitazone [Actos] 15 mg PO DAILY 04/17/20 02/18/21 History RX: Famotidine 20 mg PO BID 04/17/20 02/18/21 History Ascorbic Acid [Vitamin C] 500 mg PO DAILY 02/18/21 02/18/21 History Cholecalciferol [Vitamin D3 (25 25 mcg PO DAILY 02/18/21 02/18/21 History Mcg = 1000 Iu)] Losartan Potassium [Cozaar] 100 mg PO DAILY 02/18/21 02/18/21 History RX: Zinc 50 mg PO DAILY 02/18/21 02/18/21 History Semaglutide [Ozempic] 1 mg SQ MO 02/18/21 02/18/21 History Allergies Allergy/AdvReac Type Severity Reaction Status Date / Time cephalexin [From Keflex] Allergy Itching Verified 02/18/21 16:43 ticlopidine [From Ticlid] Allergy Rash/Hives Verified 02/18/21 16:43 Physical Exam Vitals: Vital Signs Temp Pulse Pulse Pulse Resp BP BP 02/19/21 15:55 91 02/19/21 14:00 98.6 F 90 18 02/19/21 09:10 110/74 02/19/21 08:00 98.1 F 93 16 02/19/21 02:00 98.3 F 76 16 02/18/21 20:03 97.9 F 76 16 02/18/21 19:32 97.9 F 73 18 107/55 02/18/21 18:44 98.5 F 72 18 135/70 02/18/21 18:27 02/18/21 17:29 02/18/21 17:21 02/18/21 17:14 100.0 F H 72 18 123/59 02/18/21 16:40 101.2 F H 74 18 111/63 02/18/21 16:06 75 18 124/60 BP BP Pulse Ox 02/19/21 15:55 123/72 02/19/21 14:00 110/67 93 L 02/19/21 09:10 101/69 118/75 02/19/21 08:00 131/79 93 L 02/19/21 02:00 103/61 93 L 02/18/21 20:03 93 L 02/18/21 19:32 93 L 02/18/21 18:44 92 L 02/18/21 18:27 92 L 02/18/21 17:29 90 L 02/18/21 17:21 94 L 02/18/21 17:14 91 L 02/18/21 16:40 91 L 02/18/21 16:06 90 L Intake and Output 02/19/21 02/19/21 02/19/21 06:59 14:59 22:59 Other: Voiding Method Toilet # Voids 1 General: non toxic, no distress, appears at stated age Examination of the skin revealed no evidence of significant rashes, suspicious appearing nevi or other concerning lesions. Head exam was generally normal. There was no scleral icterus or corneal arcus. Mucous membranes were moist. Eyes: EOMI, no lid lag, anicteric sclera Mouth: no lip lesion, mucus membranes dry Cardiovascular: S1S2 reg, no murmur, positive posterior tibial pulse bilateral, Lungs: CTA bilateral, no rhonchi, no rales , no accessory muscle use Abdominal: soft, nontender to palpation, no guarding, no appreciable orga nomegaly Ext: no gross muscle atrophy, no edema, no contractures Neurologically, the patient is awake and alert and the patient does not have any focal neurological deficit. Cranial nerves are essentially intact. Psych: Alert, oriented, appropriate affect Results - Laboratory Findings CBC and BMP: 02/19/21 05:46 02/19/21 05:46 PT/INR, D-dimer PT 10.6 sec (9.0-12.0) 02/18/21 14:15 INR 1.0 (<1.2) 02/18/21 14:15 D-Dimer 1.27 mg/L FEU (<0.60) H 02/19/21 05:46 Abnormal lab findings: Abnormal Labs 02/18/21 02/18/21 02/18/21 14:15 14:15 14:15 Lymphocytes # 0.9 L D-Dimer 1.31 H Sodium 133 L Glucose 153 H POC Glucose (mg/dL) Lactate Dehydrogenase C-Reactive Protein Total Protein Urine Protein Urine Glucose (UA) 02/18/21 02/18/21 02/19/21 20:57 Unknown 05:46 Lymphocytes # 0.5 L D-Dimer Sodium Glucose POC Glucose (mg/dL) 170 H Lactate Dehydrogenase C-Reactive Protein Total Protein Urine Protein Trace H Urine Glucose (UA) 4+ H 02/19/21 02/19/21 02/19/21 05:46 05:46 07:09 Lymphocytes # D-Dimer 1.27 H Sodium Glucose 187 H POC Glucose (mg/dL) 181 H Lactate Dehydrogenase 884 H C-Reactive Protein 57.9 H Total Protein 6.1 L Urine Protein Urine Glucose (UA) 02/19/21 11:10 Lymphocytes # D-Dimer Sodium Glucose POC Glucose (mg/dL) 196 H Lactate Dehydrogenase C-Reactive Protein Total Protein Urine Protein Urine Glucose (UA) - Diagnostic Findings Chest x-ray: image reviewed CT scan - chest: image reviewed Assessment and Plan Plan: 1 acute COVID 19 infection with minimal pneumonia. The patient's symptoms are mainly those of constitutions symptoms of fatigue and tiredness and some limited shortness of breath. No significant hypoxemia. Patient was initially treated with monoclonal antibodies and she was supposed to get discharged home and ultimately she got hospitalized and she was given Decadron. Her diagnosis was established on 02/10/2021. 2 dizziness/orthostatic hypotension 3 diabetes mellitus type 2 4 coronary artery disease 5 hypertension 6 hyperlipidemia 7 obesity with a BMI of 33.2 Plan Continue with vitamin C, vitamin D, and zinc. Initiate a shot course steroids and hold off Remdesivir. Continue to monitor closely. possbile home over the next 24 hours
[2021-02-19] MEDS: dexAMETHasone 2 MG TAB PO SCH (16:52)
[2021-02-19 17:12] LABS: Glucose,Whole Blood 244 mg/dL (75-99)
[2021-02-19 20:17] LABS: Glucose,Whole Blood 266 mg/dL (75-99)
[2021-02-19] MEDS: SODIUM CHLORIDE 0.9% 1,000 ML IV SCH ×2 (20:42→23:58)
[2021-02-19] MEDS: ATORVASTATIN 40 MG TAB PO SCH (20:57)
--- NOTE | 2021-02-19 22:11 | US ---
EXAMINATION TYPE: US carotid duplex BILAT DATE OF EXAM: 02/19/2021 COMPARISON: NONE CLINICAL HISTORY: dizziness. Dizziness x 2 days. Hx hypertension, hyperlipidemia. Hx [place] 20 years ago. Hx cardiac stent. EXAM MEASUREMENTS: RIGHT: Peak Systolic Velocity (PSV) cm/sec ----- Right CCA: 88.3 ----- Right ICA: 82.8 ----- Right ECA: 92.7 ICA/CCA ratio: 0.9 RIGHT: End Diastole cm/sec ----- Right CCA: 15.7 ----- Right ICA: 25.6 ----- Right ECA: 6.9 LEFT: Peak Systolic Velocity (PSV) cm/sec ----- Left CCA: 76.7 ----- Left ICA: 87.1 ----- Left ECA: 89.7 ICA/CCA ratio: 1.1 LEFT: End Diastole cm/sec ----- Left CCA: 9.4 ----- Left ICA: 18.5 ----- Left ECA: 13.3 VERTEBRALS (direction of flow): Right Vertebral: Antegrade Left Vertebral: Antegrade Rhythm: Normal Plaque seen within bilateral carotid bifurcations. No elevated velocities at this time. Left ICA appe ars tortuous. -Hypoechoic area with hyperechoic center seen within the right neck measurin.0 x 1.0 x 0.6 cm. -Hypoechoic area with hyperechoic center seen within the left neck measurin.0 x 0.6 x 0.4 cm. -Incidental finding: Heterogeneous area with vascularity seen within the right thyroid lobe measuring : 1.5 x 1.1 x 1.1 cm. IMPRESSION: There is antegrade flow in the vertebral arteries. The images and measurements suggest 35% stenosis in both internal carotid arteries. Criteria for Assigning % of Stenosis / Diameter reduction (Estimation based on the indirect measurements of the internal carotid artery velocities (ICA PSV). 1. Normal (no stenosis)=ICA PSV < 125 cm/s: ratio < 2.0: ICA EDV<40 cm/s. 2. Less than 50% stenosis=ICA PSV < 125 cm/s: ratio < 2.0: ICA EDV<40 cm/s. 3. 50 to 69% stenosis=ICA PSV of 125 to 230 cm/s: ration 2.0 ? 4.0: ICA EDV 40-100 cm/s. 4. Greater than 70% stenosis to near occlusion= ICA PSV > 230 cm/s: ratio > 4.0: ICA EDV > 100 cm/s. 5. Near occlusion= ICA PSV velocities may be low or undetectable: variable ratio and ICA EDV. 6. Total occlusion=unable to detect flow.
[2021-02-20 03:00] VITALS: RESP 16
[2021-02-20 06:11] LABS: Basophils % (A) 0 %; Eosinophils % (A) 0 %; HCT 36.9 % (34.0-46.0); HGB 12.4 gm/dL (11.4-16.0); Lymphocytes # (A) 0.6 k/uL (1.0-4.8); Lymphocytes % (A) 5 %; MCH 29.7 pg (25.0-35.0); MCHC 33.5 g/dL (31.0-37.0); MCV 88.8 fL (80.0-100.0); Mean Platelet Volume 7.7; Monocytes # (A) 0.3 k/uL (0-1.0); Monocytes % (A) 2 %; Neutrophils # (A) 11.2 k/uL (1.3-7.7); Neutrophils % (A) 92 %; Platelet Count 279 k/uL (150-450); RBC 4.16 m/uL (3.80-5.40); RDW 14.4 % (11.5-15.5); WBC 12.2 k/uL (3.8-10.6)
[2021-02-20 06:27] LABS: ALT 16 U/L (4-34); AST 27 U/L (14-36); African American GFR (CKD) >90 (>60 ml/min/1.73 sqM); Albumin 3.4 g/dL (3.5-5.0); Albumin/Globulin Ratio 1.3; Alkaline Phosphatase 84 U/L (38-126); Anion Gap 9 mmol/L; Blood Urea Nitrogen 17 mg/dL (7-17); Calcium 9.2 mg/dL (8.4-10.2); Carbon Dioxide 24 mmol/L (22-30); Chloride 107 mmol/L (98-107); Globulin 2.7 g/dL; Glucose 209 mg/dL (74-99); LDH 899 U/L (313-618); Non-African American GFR(CKD) 87 (>60 ml/min/1.73 sqM); Potassium 4.4 mmol/L (3.5-5.1); Sodium 140 mmol/L (137-145); Total Bilirubin 0.6 mg/dL (0.2-1.3); Total Protein 6.1 g/dL (6.3-8.2)
[2021-02-20 06:42] LABS: C Reactive Protein 47.9 mg/L (<10.0)
[2021-02-20 07:45] LABS: Glucose,Whole Blood 195 mg/dL (75-99)
[2021-02-20 08:00] VITALS: BP 149/72; PULSE 77; TEMP 98
[2021-02-20] MEDS: INSULIN ASPART (NovoLOG) 100 UNIT/ML VIAL SQ SCH (08:14)
[2021-02-20] MEDS: ZINC SULFATE 220 MG CAP PO SCH (08:15)
[2021-02-20] MEDS: CHOLECALCIFEROL 25 MCG (1000 IU) TABLET PO SCH (08:15)
[2021-02-20] MEDS: LOSARTAN 50 MG TAB PO SCH (08:15)
[2021-02-20] MEDS: ENOXAPARIN 40 MG/0.4 ML SYRINGE SQ SCH (08:15)
[2021-02-20] MEDS: dexAMETHasone 2 MG TAB PO SCH (08:15)
[2021-02-20] MEDS: atenoloL 50 MG TAB PO SCH (08:15)
[2021-02-20] MEDS: ASPIRIN 81 MG PO SCH (08:15)
[2021-02-20] MEDS: FAMOTIDINE 20 MG TAB PO SCH (08:15)
[2021-02-20] MEDS: ISOSORBIDE MONONITRATE ER 30 MG TAB.ER.24H PO SCH (08:15)
[2021-02-20] MEDS: ASCORBIC ACID 500 MG TAB PO SCH (08:15)
--- NOTE | 2021-02-20 09:36 | XR ---
EXAMINATION TYPE: XR chest 1V portable DATE OF EXAM: 02/20/2021 COMPARISON: Chest x-ray 02/18/2021 HISTORY: Covid pneumonia TECHNIQUE: Single frontal view of the chest is obtained. FINDINGS: Minimal patchy bilateral density is noted similar to prior exam. No significant interval c hange. IMPRESSION: Correlate for pneumonia.
--- NOTE | 2021-02-20 10:48 | P.DS ---
Providers Date of admission: 02/18/21 17:06 Expected date of discharge: 02/20/21 Attending physician: Sasha Gruber DO Consults: 02/18/21 17:05 Consult Physician Stat Consulting Provider: Raymond Lai Reason/Comments: covid pneumonia with hypoxia Do you want consulting provider notified?: Yes [facility] Course: This is a 70-year-old female with past medical history significant for essential hypertension and type 2 diabetes that presented to the emergency room with flulike symptoms and shortness of breath. Patient was diagnosed with COVID-19 on February 10. She was evaluated in the emergency room and a CT angiogram of the chest showed no evidence of PE. Noted bilateral pulmonary infiltrates suggestive for viral pneumonia. Patient received monoclonal antibody with plan to discharge her home that she felt uncomfortable going home as her is currently in ICU and no one can help her at home. She was also complaining of some dizziness. Her orthostatic blood pressure was slightly positive. She received aggressive IV fluid hydration and repeat orthostatics were negative. She underwent a carotid Doppler showing no hemodynamically significant stenosis. There was no evidence of hypoxia throughout this hospitalization. No indication for steroid at this time and will be avoided secondary to underlying diabetes. Patient overall condition improved significantly throughout her hospitalization. She will be discharged home with home healthcare services. She was advised to continue vitamin supplements including vitamin C, vitamin D, and zinc. She was encouraged to continue oral hydration at home. For further details about this hospitalization please refer to the electronic chart. Patient Condition at Discharge: Stable Plan - Discharge Summary Discharge Rx Participant: No New Discharge Prescriptions: Continue atenoloL [Tenormin] 50 mg PO DAILY ALPRAZolam [Xanax] 0.25 mg PO BID PRN PRN Reason: Anxiety Aspirin [Adult Low Dose Aspirin EC] 81 mg PO DAILY Isosorbide Mononitrate [Isosorbide Mononitrate ER] 30 mg PO DAILY Atorvastatin [Lipitor] 40 mg PO HS #90 tab Famotidine 20 mg PO BID Empagliflozin [Jardiance] 25 mg PO DAILY Pioglitazone [Actos] 15 mg PO DAILY Cholecalciferol [Vitamin D3 (25 Mcg = 1000 Iu)] 25 mcg PO DAILY Ascorbic Acid [Vitamin C] 500 mg PO DAILY Losartan Potassium [Cozaar] 100 mg PO DAILY Semaglutide [Ozempic] 1 mg SQ MO Zinc 50 mg PO DAILY Discharge Medication List ALPRAZolam [Xanax] 0.25 mg PO BID PRN 09/01/19 [History] Aspirin [Adult Low Dose Aspirin EC] 81 mg PO DAILY 09/01/19 [History] Isosorbide Mononitrate [Isosorbide Mononitrate ER] 30 mg PO DAILY 09/01/19 [History] atenoloL [Tenormin] 50 mg PO DAILY 09/01/19 [History] Atorvastatin [Lipitor] 40 mg PO HS #90 tab 09/04/19 [Rx] Empagliflozin [Jardiance] 25 mg PO DAILY 04/17/20 [History] Famotidine 20 mg PO BID 04/17/20 [History] Pioglitazone [Actos] 15 mg PO DAILY 04/17/20 [History] Ascorbic Acid [Vitamin C] 500 mg PO DAILY 02/18/21 [History] Cholecalciferol [Vitamin D3 (25 Mcg = 1000 Iu)] 25 mcg PO DAILY 02/18/21 [History] Losartan Potassium [Cozaar] 100 mg PO DAILY 02/18/21 [History] Semaglutide [Ozempic] 1 mg SQ MO 02/18/21 [History] Zinc 50 mg PO DAILY 02/18/21 [History] Follow up Appointment(s)/Referral(s): [facility], [NON-STAFF] - 1-2 Days Latonya Erwin MD [Primary Care Provider] - 1-2 days Discharge Disposition: HOME SELF-CARE
[2021-02-20 11:41] LABS: Glucose,Whole Blood 244 mg/dL (75-99)
--- NOTE | 2021-02-22 15:30 | ECHOF ---
Referral Reason:dizziness MEASUREMENTS -------- HEIGHT: 70.0 cm WEIGHT: 170.0 kg BP: RVIDd: 2.8 cm (< 3.3) IVSd: 0.9 cm (0.6 - 1.1) LVIDd: 4.5 cm (3.9 - 5.3) LVPWd: 1.4 cm (0.6 - 1.1) IVSs: 1.5 cm LVIDs: 3.1 cm LVPWs: 1.8 cm LA Diam: 4.0 cm (2.7 - 3.8) LAESV Index (A-L): 30.89 ml/m Ao Diam: 2.7 cm (2.0 - 3.7) LA Diam: 4.2 cm (2.7 - 3.8) MV EXCURSION: 18.026 mm (> 18.000) MV EF SLOPE: 47 mm/s (70 - 150) EPSS: 0.9 cm MV E Monster: 0.61 m/s MV DecT: 282 ms MV A Monster: 0.86 m/s MV E/A Ratio: 0.71 FINDINGS -------- Sinus rhythm. Pt is Positive Covid. LV size, wall thickness and systolic function are normal, with an EF greater than 55%. The left renetta tricular size is normal. The right ventricle is normal in size. The left atrial size is normal. The right atrial size is normal. 1.5MG OF DEFINITY UTLIZED: 2 OR MORE WALL SEGMENTS NOT VISUALIZED. The aortic valve is trileaflet, and appears structurally normal. No aortic stenosis or regurgitation. Mild mitral regurgitation is present. Mild tricuspid regurgitation present. Right ventricular systolic pressure is normal at < 35 mmHg. There is no pulmonic regurgitation present. The aortic root size is normal. There is no pericardial effusion. CONCLUSIONS -------- 1. Pt is Positive Covid. 2. LV size, wall thickness and systolic function are normal, with an EF greater than 55%. 3. The left ventricular size is normal. 4. The right ventricle is normal in size. 5. The left atrial size is normal. 6. The right atrial size is normal. 7. 1.5MG OF DEFINITY UTLIZED: 2 OR MORE WALL SEGMENTS NOT VISUALIZED. 8. Mild mitral regurgitation is present. 9. Mild tricuspid regurgitation present. 10. The aortic root size is normal. 11. There is no pericardial effusion. ASSISTANT PROFESSOR OF RELIGION: Beverly Liao RDCS
== END 2021-02-20 12:20 | disposition home or self-care (01) ==
LOC: EC 14:04 → INTOOBSV 17:06 → 4SSUR 17:06 → 6NMEDSUR 18:11
PROVIDERS: ADMIT Internal Medicine; ATTEND Internal Medicine
DX: U07.1 COVID-19 (principal); J12.82 Pneumonia due to coronavirus disease 2019; E11.9 Type 2 diabetes mellitus without complications; E78.5 Hyperlipidemia, unspecified; I25.10 Atherosclerotic heart disease of native coronary artery without angina pectoris; I10 Essential (primary) hypertension; I95.1 Orthostatic hypotension; E66.01 Morbid (severe) obesity due to excess calories; Z68.33 Body mass index [BMI] 33.0-33.9, adult; R79.1 Abnormal coagulation profile; R63.0 Anorexia; F41.9 Anxiety disorder, unspecified; I25.2 Old myocardial infarction; E07.9 Disorder of thyroid, unspecified; Z79.82 Long term (current) use of aspirin; Z79.84 Long term (current) use of oral hypoglycemic drugs; Z79.899 Other long term (current) drug therapy; Z90.49 Acquired absence of other specified parts of digestive tract; Z98.61 Coronary angioplasty status; Z96.60 Presence of unspecified orthopedic joint implant
CPT/HCPCS: 96361 ×2; 96372 ×2; 96365; 96375; 99285; 36415; 94760; 93005; 85379 ×3; 80053 ×3; 83605; 83615 ×2; 83735 ×3; 84484; 85025 ×3; 85610; 85730; 86140 ×2; 81003; 71045; 71046; 93880; 71275; G0378 ×3; C8929; J1100; J1650 ×2; J8540 ×2; Q9950; Q9967; Q0239; 93306

== ENCOUNTER → 2021-04-24 | Outpatient (CLI) | payer MEDICARE ==
--- NOTE | 2021-04-24 16:15 | US ---
EXAMINATION TYPE: US thyroid st tissue head/neck DATE OF EXAM: 04/24/2021 COMPARISON: None CLINICAL HISTORY: E04.1 Thyroid Nodule, R22.0 Swelling. Thyroid nodules GLAND SIZE: Right Lobe: 4.0 x 1.9 x 1.5 cm Overall Parenchyma: heterogenous Left Lobe: 3.6 x 1.1 x 1.4 cm Overall Parenchyma: heterogeneous Isthmus Thickness: 0.2 cm NODULES RIGHT: # of nodules measured on right: 2 1. 1.7 X 1.1 x 1.0 cm, upper lateral, solid or almost completely solid, isoechoic nodule, which is wider than tall, with smooth margins, without echogenic foci. Prior size: no prior 2. 0.6 X 0.5 x 0.5 cm, mid medial, solid or almost completely solid, hyperechoic nodule, which is w rehan as tall, with smooth margins, without echogenic foci. Prior size: no prior LEFT: # of nodules measured on left: 0 ISTHMUS: # of nodules measured in the isthmus: 0 Bilateral neck scanned, no evidence of lymphadenopathy. IMPRESSION: There are at least 2 thyroid nodules in the right lobe suggestive of a TI-RADS 3 nodules. Continued s onographic follow-up is recommended. 2017 ACR TI-RADS LEVEL: 3 *Highest TI-RADS level nodule reported
== END | disposition home or self-care (01) ==
LOC: RADUSWWP 12:52
PROVIDERS: ATTEND Family Medicine
DX: E04.2 Nontoxic multinodular goiter (principal)
CPT/HCPCS: 76536

== ENCOUNTER → 2021-05-10 | Outpatient (CLI) | payer MEDICARE ==
--- NOTE | 2021-05-10 10:31 | FL ---
EXAMINATION TYPE: FL UGI air DATE OF EXAM: 05/10/2021 COMPARISON: None HISTORY: Epigastric pain TECHNIQUE: Upper gastrointestinal tract is evaluated utilizing double air contrast technique. Radiogr aphs and fluoroscopy is performed. FINDINGS: Fluoroscopy time: 1 minute 9 seconds of fluoroscopy time was provided for procedure Images: 77 The esophagus dilates to normal caliber is normal contour of the gastroesophageal junction. Gastroeso phageal junction opens to normal caliber. Subtle tertiary contractions are present within the distal esophagus compatible some mild presbyesophagus. Reflux the level of the aortic arch is evident during the exam. Fundus body and antrum of the stomach visualized are normal. No intraluminal or extramural defects ar e evident. Contrast empties into a normally positioned duodenal cap and sweep. Ligament of Treitz is in a normal position. IMPRESSION: 1. Mild presbyesophagus. 2. Gastroesophageal reflux.
== END | disposition home or self-care (01) ==
LOC: RADUSWWP 07:54
PROVIDERS: ATTEND Family Medicine
DX: K21.9 Gastro-esophageal reflux disease without esophagitis (principal); K22.8 Other specified diseases of esophagus
CPT/HCPCS: 74246

== ENCOUNTER → 2021-07-04 | Outpatient (CLI) | payer MEDICARE ==
[2021-07-04 09:18] LABS: HCT 40.6 % (34.0-46.0); HGB 13.5 gm/dL (11.4-16.0); MCHC 33.3 g/dL (31.0-37.0); Mean Platelet Volume 7.7; Platelet Count 246 k/uL (150-450); RBC 4.37 m/uL (3.80-5.40); RDW 14.8 % (11.5-15.5); WBC 6.7 k/uL (3.8-10.6)
[2021-07-04 09:24] LABS: Potassium 4.7 mmol/L (3.5-5.1)
== END | disposition home or self-care (01) ==
LOC: LABPAT 07:28
PROVIDERS: ATTEND Internal Medicine Interventional Cardiology
DX: Z01.812 Encounter for preprocedural laboratory examination (principal); I25.10 Atherosclerotic heart disease of native coronary artery without angina pectoris
CPT/HCPCS: 36415; 80051; 82565; 84520; 85027

== ENCOUNTER 2021-07-05 07:46 | Day surgery (SDC) | payer MEDICARE ==
[2021-07-03 09:27] VITALS: BMI 33.2
[~2021-07-05 07:46] MED LIST changes: +ALPRAZolam 0.25 MG TAB PO PRN; +ALPRAZolam 0.5 MG TAB PO PRN; +ASPIRIN 325 MG TAB PO ONE; +ATORVASTATIN 80 MG TAB PO ONE; +HEPARIN SODIUM,PORCINE 10,000 UNIT in SODIUM CHLORIDE 0.9% 1,000 ML IRRIGATION PRN; -LACTATED RINGERS 1,000 ML IV SCH; +NITROGLYCERIN SL TABS 0.4 MG TAB SUBLINGUAL PRN
[2021-07-05] MEDS ORDERED: SODIUM CHLORIDE 0.9% 1,000 ML IV ONE (08:23)
[2021-07-05 08:39] LABS: Glucose,Whole Blood 123 mg/dL (75-99)
[2021-07-05 08:40] VITALS: RESP 16; TEMP 98.1
[2021-07-05] MEDS ORDERED: fentaNYL (PF) 50 MCG/ML 2 ML AMP IV ONE (09:33)
[2021-07-05] MEDS: LIDOCAINE 1% INJ 10MG/ML (20 ML MDV) SQ ONE ×2 (09:40→10:07)
[2021-07-05] MEDS ORDERED: LIDOCAINE 1% INJ 10MG/ML (20 ML MDV) SQ ONE (10:07)
[2021-07-05] MEDS ORDERED: IOPAMIDOL-370 125ML BTL INJ ONE ×2 (10:18)
[2021-07-05] MEDS ORDERED: RX INFO: IV CONTRAST WAS GIVEN 1 EACH MISC MISCELLANE PRN (10:34)
[2021-07-05] MEDS ORDERED: SODIUM CHLORIDE 0.9% 1,000 ML IV SCH (10:45)
[2021-07-05] MEDS ORDERED: ACETAMINOPHEN TAB 325 MG TAB ONE (10:55)
--- NOTE | 2021-07-05 14:03 | CC ---
CARDIAC CATHETERIZATION REPORT Mrs. Rausch is a 71-year-old female with known history of hypertension, hyperlipidemia, and diabetes mellitus, history of coronary artery disease who has been complaining of some chest discomfort, underwent myocardial perfusion imaging that revealed anterior wall ischemia. In view of that, recommendation was made regarding cardiac catheterization. The procedure as well as the risks and the complications were discussed with the patient who is in full understanding and agreement. PROCEDURE: Patient was brought to the manager cath lab in a fasting semisedated state after receiving fentanyl and Benadryl and achieving moderate conscious sedated state using Xylocaine anesthesia and Seldinger technique. The right radial artery was cannulated twice, but there was inability to advance the wire at that time. Using Xylocaine anesthesia and Seldinger technique a 6-Sinhala sheath was introduced in the right femoral artery. Selective right and left coronary angiography performed using 6-Sinhala 4 bend right and left Jareth catheter. Multiple views of the coronary arteries including hemiaxial views were obtained. Following that, a 5-Sinhala tight pigtail catheter was introduced into the left ventricle and pressures were calculated. Following that, catheter and sheath were removed. Hemostasis was obtained with deployment of an Angio-Seal. There was no immediate complication. Patient is returned to her room in stable condition. FINDINGS: FLUOROSCOPY: There was severe calcification involving all the coronary arteries. CORONARY ANGIOGRAM: LEFT MAIN: This is a large-sized vessel, bifurcating into left circumflex, left anterior descending artery, left main coronary artery has no evidence of high-grade stenosis. LEFT ANTERIOR DESCENDING ARTERY: This is a large-sized vessel reaching towards the apex with a wrap around the apex segment, calcified, giving rise to a large diagonal branch. At the takeoff of diagonal branch, there is a 40 50% plaque involving the takeoff of the diagonal branch. The rest of the vessel has no high-grade stenosis. LEFT CIRCUMFLEX: This is a nondominant vessel giving rise to 3 obtuse marginal branches. The third is the largest in caliber. The left circumflex in the mid segment has a 20% plaque. The rest of the vessel has no high-grade stenosis. RIGHT CORONARY ARTERY: This is a large dominant vessel, bifurcating distally PDA and posterolateral segment and branches. The right coronary artery stented segment in the mid area is patent with minimal in-stent restenosis stents 10-20%. In the distal segment, a tubular long lesion of about 30-40 percent and there is a plaque at the takeoff of the right PDA. The rest of the vessel has no high-grade stenosis. LEFT VENTRICULOGRAM: Left ventriculogram was not performed. HEMODYNAMICS: There was no gradient across the aortic valve. The left ventricle end-diastolic pressure was 16-18 mmHg. CONCLUSION: 1. Calcified coronary arteries. 2. Mild to moderate disease in the LAD and the right coronary artery with mild disease in the left circumflex. 3. No evidence of restenosis at the site of the prior stenting. RECOMMENDATIONS: In view of findings and anatomy, I recommend continued medical therapy with aggressive coronary risk modifications that have been initiated. Those findings and recommendations were discussed with the patient and her family who are in full understanding and agreement. There is no evidence of progression of disease compared with the images obtained in 2019. Duration of sedation: 40 minutes. KEE / TEREN: [id number] /
--- NOTE | 2021-07-05 14:03 | LTR ---
DATE OF SERVICE: July 05, 2021 RE: Lashon Rausch Dear Dr. Erwin: I had the pleasure of performing cardiac catheterization on Mrs. Rausch at [facility] on July 05. A full copy of procedure note will be forwarded to you. In brief, she was found to have calcified coronary arteries with mild to moderate triple-vessel coronary artery disease and no significant progression compared to 2019 with a patent stent to the LAD. Based on those findings, I recommend continued medical therapy with aggressive coronary risk modifications that have been initiated. Depending on her progress, further recommendations will be made. Thank you again for allowing me to participate in her care. Please feel free to call for any questions. Sincerely yours, MMODL / IJN: [id number] /
[2021-07-05 14:55] VITALS: BP 125/61; PULSE 70
[2021-07-05] MEDS ORDERED: ATORVASTATIN 40 MG TAB PO SCH (21:00)
[2021-07-06] MEDS ORDERED: atenoloL 50 MG TAB PO SCH (09:00)
[2021-07-06] MEDS ORDERED: LOSARTAN 50 MG TAB PO SCH (09:00)
[2021-07-06] MEDS ORDERED: ISOSORBIDE MONONITRATE ER 30 MG TAB.ER.24H PO SCH (09:00)
[2021-07-06] MEDS ORDERED: ASPIRIN 81 MG PO SCH (09:00)
== END 2021-07-05 15:36 | disposition home or self-care (01) ==
LOC: CATHCVL 07:46
PROVIDERS: ATTEND Internal Medicine Interventional Cardiology
DX: I25.10 Atherosclerotic heart disease of native coronary artery without angina pectoris (principal); I10 Essential (primary) hypertension; E78.5 Hyperlipidemia, unspecified; E11.9 Type 2 diabetes mellitus without complications; I99.8 Other disorder of circulatory system
CPT/HCPCS: 93458; 92928; C1760; C1894 ×2; C1769; J2001; J3010; Q9967

== ENCOUNTER → 2021-07-24 | Outpatient (CLI) | payer MEDICARE ==
--- NOTE | 2021-07-25 13:27 | BD ---
EXAMINATION TYPE: Axial Bone Density DATE OF EXAM: 07/24/2021 COMPARISON: 04.09.2019 CLINICAL HISTORY: 71 YR OLD FEMALE.....ICD-10 CODE: M89.9 DISORDER OF BD Height: 59 Weight: 174 FRAX RISK QUESTIONS: Family History (Parent hip fracture): YES TYPE 1 DIABETIC RISK FACTORS HISTORY OF: Family History of Osteoporosis: YES, MOTHER WITH HIP FX Postmenopausal woman: YES, AT AGE 52 YRS OLD Lost more than 2 inches in height since high school: YES Hyperparathyroidism: NO Adrenal Insufficiency: NO MEDICATIONS: Additional Medications: REFLUX MEDS, CHOLESTEROL MEDS, BP MEDS, XANAX, OZEMPIC ONCE WEEKLY, JARDIANCE , VIT D, NSAIDS, ACTOS Additional History: REFLUX, CHOLESTEROL, HYPERTENSION, DIABETIC, ARTHRITIS, EXAM MEASUREMENTS: Bone mineral densitometry was performed using the Raumfeld System. Bone mineral density as measured about the Lumbar spine is: ----- L1-L4(G/cm2): 1.249 T Score Values are as follows: ----- L1: -2.3 ----- L2: 0.5 ----- L3: 1.1 ----- L4: 2.4 ----- L1-L4: 0.6 Bone mineral density has: Increased 4.4% since study of: 04.09.2019 Bone mineral density about the R hip (g/cm2): 0.777 Bone mineral density about the L hip (g/cm2): 0.824 T Score values are as follows: -----R Neck: -2.4 -----L Neck: -2.4 -----R Total: -1.8 -----L Total: -1.5 Bone mineral density has: Decreased -2.9% SINCE: 04.09.2019 FRAX%s: THERE IS A 22.2% CHANCE FOR A MAJOR OSTEOPOROTIC FX AND A 8.4% FOR HIP....PROBABILITY FOR FX IN 10- YRS TIME IMPRESSION: Osteopenia NOTE: T-SCORE=SD OF THE YOUNG ADULT MEAN.
--- NOTE | 2021-07-25 13:54 | MM ---
Reason for exam: screening (asymptomatic). Last mammogram was performed 1 year and 1 month ago. History: Patient is postmenopausal. Cyst aspiration of the left breast, December 22, 2003. Took estrogen for 10 years. Took progesterone for 10 years. Physical Findings: A clinical breast exam by your physician is recommended on an annual basis and results should be correlated with mammographic findings. MG 3D Screening Mammo W/Cad Bilateral CC and MLO view(s) were taken. Prior study comparison: June 23, 2020, bilateral MG 3d screening mammo w/cad. April 09, 2019, bilateral MG 3d screening mammo w/cad. January 28, 2018, bilateral MG 3d screening mammo w/cad. The breast tissue is heterogeneously dense. This may lower the sensitivity of mammography. There is chronic nodularity in the right breast medially. Diffuse bilateral oil cyst calcifications area present. Stable secretory calcifications on the right. Regional punctate calcifications unchanged. No significant changes when compared with prior studies. ASSESSMENT: Benign, BI-RAD 2 RECOMMENDATION: Routine screening mammogram of both breasts in 1 year.
== END | disposition home or self-care (01) ==
LOC: RADMAMWWP 15:09
PROVIDERS: ATTEND Obstetrics & Gynecology
DX: Z12.31 Encounter for screening mammogram for malignant neoplasm of breast (principal); M85.80 Other specified disorders of bone density and structure, unspecified site
CPT/HCPCS: 77063; 77067; 77080

== ENCOUNTER → 2022-01-05 | Outpatient (CLI) | payer MEDICARE ==
[2022-01-05 16:27] LABS: ALT 22 U/L (8-44); AST 21 U/L (13-35); African American GFR (CKD) 72.5 (60.0-200.0); Albumin 4.3 g/dL (3.8-4.9); Albumin/Globulin Ratio 1.76 (1.60-3.17); Alkaline Phosphatase 103 U/L (41-126); BUN/Creat Ratio 18.35 Ratio (12.00-20.00); Blood Urea Nitrogen 16.9 mg/dL (9.0-27.0); Calcium 9.6 mg/dL (8.7-10.3); Carbon Dioxide 24.3 mmol/L (20.0-27.5); Chloride 106 mmol/L (96-109); Chol/HDL Ratio 2.26 Ratio; Globulin 2.5 g/dL (1.6-3.3); Glucose 116 mg/dL (70-110); LDL Cholesterol,Calculated 48.6 mg/dL (0.0-131.0); Non-African American GFR(CKD) 62.6 (60.0-200.0); Potassium 4.5 mmol/L (3.5-5.5); Sodium 143 mmol/L (135-145); Total Protein 6.8 g/dL (6.2-8.2); VLDL Calculation 16.56 mg/dL (5.00-40.00)
== END | disposition home or self-care (01) ==
LOC: LABWHC1 01-01 09:07
PROVIDERS: ATTEND Internal Medicine Interventional Cardiology
DX: E78.2 Mixed hyperlipidemia (principal)
CPT/HCPCS: 36415; 80053; 80061

== ENCOUNTER → 2022-07-25 | Outpatient (CLI) | payer MEDICARE ==
--- NOTE | 2022-07-26 08:53 | MM ---
Reason for Exam: Screening (asymptomatic). Last screening mammogram was performed 12 month(s) ago. Patient History: Menarche at age 12. First Full-Term at age 21. Left ovary removed at age 46. Right ovary removed at age 46. Hysterectomy at age 46. Postmenopausal. Estrogen for 10 years until age 50. Progesterone for 10 years until age 50. 12/22/2003, Cyst Aspiration on the Left side. Risk Values: Charlene 5 year model risk: 1.6%. NCI Lifetime model risk: 4.1%. Prior Study Comparison: 04/09/2019 Bilateral Screening Mammogram, [facility]. 06/23/2020 Bilateral Screening Mammogram, [facility]. 07/24/2021 Bilateral Screening Mammogram, [facility]. Tissue Density: The breast tissue is heterogeneously dense. This may lower the sensitivity of mammography. Findings: Analyzed By CAD. Scattered bilateral calcifications which appear benign. There is no suspicious group of microcalcifications or new suspicious mass in either breast. Overall Assessment: Benign, BI-RAD 2 Management: Screening Mammogram of both breasts in 1 year. A clinical breast exam by your physician is recommended on an annual basis and results should be correlated with mammographic findings. Electronically signed and approved by: Raymond Langford DO
== END | disposition home or self-care (01) ==
LOC: RADMAMWWP 10:14
PROVIDERS: ATTEND Obstetrics & Gynecology
DX: Z12.31 Encounter for screening mammogram for malignant neoplasm of breast (principal)
CPT/HCPCS: 77063; 77067

== ENCOUNTER → 2023-07-29 | Outpatient (CLI) | payer MEDICARE ==
--- NOTE | 2023-07-29 15:56 | BD ---
EXAMINATION TYPE: Axial Bone Density DATE OF EXAM: 07/29/2023 CLINICAL HISTORY: 73 years old Female. ICD-10 CODE: M85.88 OTH DISRD OF BONE DENSITY Height: 59 in Weight: 180 lbs FRAX RISK QUESTIONS: Family History (Parent hip fracture): yes mother Secondary Osteoporosis: 3. Menopause before 45: partial hysterectomy age 33 RISK FACTORS HISTORY OF: Family History of Osteoporosis: yes mother Active: yes Diet low in dairy products/other sources of calcium: yes Postmenopausal woman: partial hysterectomy age 33 MEDICATIONS: Additional Medications: diabetes meds, heart meds, blood pressure meds EXAM MEASUREMENTS: Bone mineral densitometry was performed using the [employer] System. Bone mineral density as measured about the Lumbar spine is: ----- L1-L4(G/cm2): 1.235 T Score Values are as follows: ----- L1: -1.5 ----- L2: -0.2 ----- L3: 1.6 ----- L4: 1.2 ----- L1-L4: 0.5 Z Score Values are as follows: ----- L1: -0.4 ----- L2: 0.9 ----- L3: 2.8 ----- L4: 2.4 ----- L1-L4: 1.6 Bone mineral density has: Decreased -1.1% since study of: 07/24/2021 Bone mineral density about the R hip (g/cm2): 0.773 Bone mineral density about the L hip (g/cm2): 0.827 T Score values are as follows: -----R Neck: -2.7 -----L Neck: -2.5 -----R Total: -1.9 -----L Total: -1.4 Z Score values are as follows: -----R Neck: -1.3 -----L Neck: -1.1 -----R Total: -0.6 -----L Total: -0.2 Bone mineral density has: Decreased -0.1% since study of: 07/24/2021 FRAX%s: The graph provided illustrates a 28.2% chance for a major osteoporotic fx and a 15.7% chance for the hips probability for fx in 10 years time. IMPRESSION: Osteoporosis (T Score less than -2.5). There is increased fracture risk and therapy is usually indicated based on age. Re-Screen 1-2 years. NOTE: T-SCORE=SD OF THE YOUNG ADULT MEAN.
--- NOTE | 2023-07-30 10:09 | MM ---
Reason for Exam: Screening (asymptomatic). Last screening mammogram was performed 12 month(s) ago. Patient History: Menarche at age 12. First Full-Term at age 21. Left ovary removed at age 46. Right ovary removed at age 46. Hysterectomy at age 46. Postmenopausal. Estrogen for 10 years until age 50. Progesterone for 10 years until age 50. 12/22/2003, Cyst Aspiration on the Left side. Risk Values: Charlene 5 year model risk: 1.6%. NCI Lifetime model risk: 3.9%. Prior Study Comparison: 06/23/2020 Bilateral Screening Mammogram, [facility]. 07/24/2021 Bilateral Screening Mammogram, [facility]. 07/25/2022 Bilateral MG 3D screening mammo w/cad, [facility]. Tissue Density: The breast tissue is heterogeneously dense. This may lower the sensitivity of mammography. Findings: Analyzed By CAD. There is no suspicious group of microcalcifications or new suspicious mass in either breast. Chronic nodularity within the right breast. Diffuse bilateral oval cyst calcifications present. Stable secretory calcifications in the right. Regional punctate calcifications are unchanged. No significant change from prior exams. Overall Assessment: Benign, BI-RAD 2 Management: Screening Mammogram of both breasts in 1 year. A clinical breast exam by your physician is recommended on an annual basis and results should be correlated with mammographic findings. Note on Charlene scores and lifetime risk: 1. A Charlene score greater than 3% is considered moderate risk. If this is the case, consider specialist referral to assess eligibility for a risk reducing agent. If overall lifetime risk for the development of breast cancer is 20% or higher, the patient may qualify for future screening with alternating mammogram and breast MRI. Electronically signed and approved by: Elvin Castelan D.O.
== END | disposition home or self-care (01) ==
LOC: RADMAMWWP 13:47
PROVIDERS: ATTEND Obstetrics & Gynecology
DX: Z12.31 Encounter for screening mammogram for malignant neoplasm of breast (principal); M81.0 Age-related osteoporosis without current pathological fracture; M85.89 Other specified disorders of bone density and structure, multiple sites; Z78.0 Asymptomatic menopausal state
CPT/HCPCS: 77063; 77067; 77080

== ENCOUNTER → 2024-01-19 | Outpatient (CLI) | payer MEDICARE ==
--- NOTE | 2024-01-19 07:39 | MM ---
Reason for Exam: Clinical finding. Last screening mammogram was performed 6 month(s) ago. Indicated Problems: Nipple abnormality of the left side for 1 Month(s). Patient History: Menarche at age 12. First Full-Term at age 21. Left ovary removed at age 46. Right ovary removed at age 46. Hysterectomy at age 46. Postmenopausal. Estrogen for 10 years until age 50. Progesterone for 10 years until age 50. 12/22/2003, Cyst Aspiration on the Left side. Risk Values: Charlene 5 year model risk: 1.6%. NCI Lifetime model risk: 3.9%. Prior Study Comparison: 07/24/2021 Bilateral Screening Mammogram, [facility]. 07/25/2022 Bilateral MG 3D screening mammo w/cad, [facility]. 07/29/2023 Bilateral MG 3D screening mammo w/cad, [facility]. Tissue Density: Left: The breast tissue is heterogeneously dense. This may lower the sensitivity of mammography. Findings: Analyzed By CAD. Unchanged global asymmetry upper-outer quadrant. 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 Areas of asymmetric density remain unchanged. Further ultrasound evaluation recommended for patients diffuse breast pain and reported new left-sided nipple inversion. Overall Assessment: Incomplete: need additional imaging evaluation, BI-RAD 0 Management: Diagnostic Breast Ultrasound of the left breast. Electronically signed and approved by: Jus Brown M.D. Radiologist
--- NOTE | 2024-01-19 07:57 | USB ---
Reason for Exam: Clinical finding. Patient History: Menarche at age 12. First Full-Term at age 21. Left ovary removed at age 46. Right ovary removed at age 46. Hysterectomy at age 46. Postmenopausal. Estrogen for 10 years until age 50. Progesterone for 10 years until age 50. 12/22/2003, Cyst Aspiration on the Left side. Risk Values: Charlene 5 year model risk: 1.6%. NCI Lifetime model risk: 3.9%. Technique: Method: Whole Breast Handheld. Prior Study Comparison: 07/24/2021 Bilateral Screening Mammogram, [facility]. 07/25/2022 Bilateral MG 3D screening mammo w/cad, [facility]. 07/29/2023 Bilateral MG 3D screening mammo w/cad, [facility]. Findings: The whole breast of the left breast, the axilla of the left breast and the retroareolar of the left breast were scanned. A complete US of all four quadrants of the breast, axilla, and retro-areolar region were reviewed. Multiple oil cyst calcifications are present. Dense tissue noted in the upper outer quadrant compatible with a global asymmetry mammogram. No solid or cystic lesion. No definite dictation. No axillary adenopathy. Overall Assessment: Benign, BI-RAD 2 Management: Screening Mammogram of both breasts in 6 months. In time for the patient's annual exam. Further clinical management of patient's left breast tenderness and reported nipple inversion. A clinical breast exam by your physician is recommended on an annual basis and results should be correlated with mammographic findings. This exam should not preclude additional follow-up of suspicious palpable abnormalities. Results were given to the patient verbally at the time of exam. Electronically signed and approved by: Jus Brown M.D. Radiologist
== END | disposition home or self-care (01) ==
LOC: RADMAMWWP 07:11
PROVIDERS: ATTEND Obstetrics & Gynecology
DX: R92.332 Mammographic heterogeneous density, left breast (principal); R92.1 Mammographic calcification found on diagnostic imaging of breast; N64.4 Mastodynia; N64.59 Other signs and symptoms in breast; Z78.0 Asymptomatic menopausal state
CPT/HCPCS: 77061; 77065

== ENCOUNTER → 2024-04-10 | Outpatient (CLI) | payer MEDICARE ==
--- NOTE | 2024-04-13 12:22 | BMR ---
EXAM DATE: 04/10/2024 EXAM DESCRIPTION: MRI-Breast Bilat (W/WO Contrast) INDICATION: Left breast pain. COMPARISON: Comparison is made with relevant prior imaging in PACS. CONTRAST: 7.5 cc of Gadavist TECHNIQUE: Multiplanar MRI imaging of both breasts was performed with a dedicated breast coil, before and after intravenous administration of gadolinium contrast, using the standard breast mass protocol. Computer-aided detection was used to aid in interpretation. Study was performed at [facility] with Radiologic interpretation by [facility]. FINDINGS: General breast composition: The breast is heterogeneously dense Background parenchymal enhancement: Minimal FINDINGS: Right Breast: Review of the dynamic contrast-enhanced series shows no rapidly enhancing masses, suspicious enhancement patterns or other abnormalities. The T2 weighted series shows no abnormality. Left Breast: Review of the dynamic contrast-enhanced series shows no rapidly enhancing masses, suspicious enhancement patterns or other abnormalities. Slight nipple retraction. the T2 weighted series shows no abnormality. IMPRESSION: The left nipple is slightly retracted. No MRI evidence of malignancy of either breast. BI-RADS Category1- Negative Clinical evaluation and follow-up are recommended. If symptoms persist surgical evaluation of the nipple retraction is recommended. The patient is due for screening mammogram in 07/2024 [facility]
== END | disposition home or self-care (01) ==
LOC: RADMRIMAIN 07:34
PROVIDERS: ATTEND Surgery
DX: N64.4 Mastodynia (principal); N64.53 Retraction of nipple; N64.59 Other signs and symptoms in breast
CPT/HCPCS: 77049; A9585

== ENCOUNTER → 2024-10-12 | Outpatient (CLI) | payer MEDICARE ==
--- NOTE | 2024-10-12 11:11 | MM ---
Reason for Exam: Additional evaluation requested from prior study. Last mammogram was performed 1 year(s) and 3 month(s) ago. Patient History: Menarche at age 12. First Full-Term at age 21. Left ovary removed at age 46. Right ovary removed at age 46. Hysterectomy at age 46. Postmenopausal. Estrogen for 10 years until age 50. Progesterone for 10 years until age 50. 12/22/2003, Cyst Aspiration on the Left side. Risk Values: Charlene 5 year model risk: 1.6%. NCI Lifetime model risk: 3.7%. Prior Study Comparison: 06/23/2020 Bilateral Screening Mammogram, [facility]. 07/24/2021 Bilateral Screening Mammogram, [facility]. 07/25/2022 Bilateral MG 3D screening mammo w/cad, [facility]. 07/29/2023 Bilateral MG 3D screening mammo w/cad, [facility]. 01/19/2024 Left MG 3D diag mammo w/cad LT, [facility]. 01/19/2024 Left US breast LT, [facility]. Tissue Density: The breasts are heterogeneously dense, which may obscure small masses. Findings: Analyzed By CAD. The pattern is symmetrical. Pattern appears stable. There are multiple benign round calcifications present bilaterally. Some spherical calcifications are present. There is chronic nodularity within the medial right breast. No suspicious groups of microcalcifications, spiculated or lobular masses, architectural distortion or other secondary signs of malignancy are mammographically apparent. Overall Assessment: Benign, BI-RAD 2 Management: Screening Mammogram of both breasts in 1 year. A negative mammogram report should not preclude additional follow up of suspicious palpable abnormalities. Patient should continue monthly self breast exam. A clinical breast exam by your physician is recommended on an annual basis and results should be correlated with mammographic findings. Note on Charlene scores and lifetime risk: 1. A Charlene score greater than 3% is considered moderate risk. If this is the case, consider specialist referral to assess eligibility for a risk reducing agent. 2. If overall lifetime risk for the development of breast cancer is 20% or higher, the patient may qualify for future screening with alternating mammogram and breast MRI. [facility], , 10/12/2024 11:08 AM. Electronically signed and approved by: Augustin Mcarthur D.O. Radiologis
== END | disposition home or self-care (01) ==
LOC: RADMAMWWP 10:41
PROVIDERS: ATTEND Surgery
DX: R92.8 Other abnormal and inconclusive findings on diagnostic imaging of breast (principal); R92.333 Mammographic heterogeneous density, bilateral breasts; Z78.0 Asymptomatic menopausal state
CPT/HCPCS: 77062; 77066

== ENCOUNTER → 2025-05-11 | Outpatient (CLI) | payer MEDICARE ==
--- NOTE | 2025-05-11 15:19 | CT ---
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 CT DLP: [address] CTDI: mGy Automated exposure control for dose reduction was used. FINDINGS: There are 3 sub-5 mm nodules in the left upper lobe. There is no airspace consolidation. There is no abnormal interstitial density. There is no pleural effusion or pneumothorax. The great vessels chest are normal and there is no mediastinal, hilar or axillary adenopathy. Limited scanning through the upper abdomen reveals cholecystectomy but no other significant abnormali ty. There are no focal osseous lesions. IMPRESSION: 1. 3 stable sub-5 mm nodules in the left lung apex. Follow-up CT in 6 months is recommended to confir m stability. 2. No acute cardiopulmonary disease. [facility], , 05/11/2025 3:17 PM
== END | disposition home or self-care (01) ==
LOC: RADCTMAIN 14:15
PROVIDERS: ATTEND Family Medicine
DX: R91.1 Solitary pulmonary nodule (principal); E04.1 Nontoxic single thyroid nodule
CPT/HCPCS: 71250